=== PATIENT | female | born 1955 | race Caucasian/White ===

== ENCOUNTER 2020-11-08 14:23 | Inpatient (IN) | payer MEDICARE, BC ==
[2020-11-08] MEDS ORDERED: Ondansetron 4 MG/2 ML SDV IVPUSH ONE (14:54)
[2020-11-08] MEDS ORDERED: Sodium Chloride 0.9% 1,000 ML IV ONE ×2 (14:54→18:08)
[2020-11-08] MEDS ORDERED: Famotidine 20 MG/2 ML SDV IVPUSH ONE (14:59)
[2020-11-08] MEDS ORDERED: Pantoprazole 40 MG Vial IVPUSH ONE (14:59)
[2020-11-08 15:05] LABS: CHLORIDE,CL 104 mmol/L (98-107); SODIUM,NA 137 mmol/L (136-145)
--- NOTE | 2020-11-08 15:46 | EDM.PDOC ---
ED HPI GENERAL MEDICAL PROBLEM - General Chief Complaint: Abdominal Pain Stated Complaint: abdominal pain Time Seen by Provider: 11/08/20 14:58 Source of Information: Reports: Patient History Limitations: Reports: No Limitations - History of Present Illness INITIAL COMMENTS - FREE TEXT/NARRATIVE: Patient comes to ER complaining of recent severe nausea/emesis/diarrhea that started around 3am last night while at work. Lots of cramping. Did have a salad earlier in the evening from [employer]. Multiple episodes that lasted for 3- 4 hours. Now feels dry. Still has diffuse abdominal discomfort/feels bloated. Also noted episodes of bright red blood from her rectum periodically since she went home from work this morning. Has history of hemorrhoids. No fevers. Feels chilled in ER. No other acute changes reported on ROS. HEENT/Resp//Neuro/CV unremarkable. No blood in emesis. Still has nausea. Patient on Voltaren for psoas injury. Says it has been upsetting her stomach when she takes it. - Related Data Allergies Allergy/AdvReac Type Severity Reaction Status Date / Time ampicillin Allergy Rash Verified 04/14/13 14:26 iodine Allergy Anaphylactic Verified 05/06/20 10:54 Shock nitrofurantoin Allergy Rash Verified 04/14/13 14:26 [From Macrobid] nitrofurantoin Allergy Rash Verified 04/14/13 14:26 macrocrystalline [From Macrobid] Past Medical History - Past Health History Medical/Surgical History: Denies Medical/Surgical History Cardiovascular History: Reports: Heart Valve Replacement, Hypertension Social & Family History - Tobacco Use Tobacco Use Status *Q: Current Every Day Tobacco User Years of Tobacco use: 43 Packs/Tins Daily: 1 - Caffeine Use Caffeine Use: Reports: Coffee, Soda - Recreational Drug Use Recreational Drug Use: No ED ROS GENERAL - Review of Systems Review Of Systems: Comprehensive ROS is negative, except as noted in HPI. ED EXAM, GENERAL - Physical Exam Exam: See Below Exam Limited By: No Limitations General Appearance: Alert, WD/WN, Mild Distress Eye Exam: Bilateral Eye: EOMI, PERRL Ears: Hearing Grossly Normal Nose: No: Nasal Deformity, Nasal Swelling, Nasal Drainage Throat/Mouth: Normal Lips, Normal Voice, No Airway Compromise Head: Atraumatic, Normocephalic Neck: Supple, Non-Tender, Full Range of Motion Respiratory/Chest: No Respiratory Distress, Lungs Clear, Normal Breath Sounds, No Accessory Muscle Use Cardiovascular: No Edema, No JVD, No Murmur, Tachycardia GI/Abdominal: Soft, Tender (mild/diffuse), Abnormal Bowel Sounds (diminished throughout). No: Guarding, Rigid, Rebound (Female) Exam: Deferred Rectal (Female) Exam: Normal Rectal Tone, Other (No obvious acute external hemorrhoids. Small amount obvious blood noted on glove. No active bleeding however. No obvious internal masses on exam. Old Hemorrhoid tags noted around rectum. No obvious tear in mucosa). No: Mass, Rectal Fissure Extremities: Normal Inspection, Normal Range of Motion, Non-Tender, Slow C apillary Refill Neurological: Alert, Oriented, Normal Cognition, No Motor/Sensory Deficits Psychiatric: Normal Affect, Normal Mood Skin Exam: Warm, Dry, Intact, Normal Color Course - Vital Signs Last Recorded V/S: Last Vital Signs Temp 36.7 C 11/08/20 14:30 Pulse 103 H 11/08/20 14:30 Resp 16 11/08/20 14:30 BP 185/79 H 11/08/20 14:30 Pulse Ox 96 11/08/20 14:30 - Orders/Labs/Meds Orders: Active Orders 24 hr Category Date Time Status Abdomen Series w Chest 1V [CR] Stat Exams 11/08/20 15:15 Ordered OCCULT BLOOD DIAGNOSTIC [OP] Stat Lab 11/08/20 14:59 Ordered URINALYSIS W/MICROSCOPIC [UA W/MICROSCOPIC] [URIN] Stat Lab 11/08/20 14:29 Ordered Sodium Chloride 0.9% [Normal Saline] 1,000 ml Med 11/08/20 14:54 Active IV .BOLUS Medication Orders Sodium Chloride (Normal Saline) 1,000 mls @ 999 mls/hr IV .BOLUS ONE Stop: 11/08/20 15:54 Labs: Laboratory Tests 11/08/20 11/08/20 11/08/20 Range/Units 14:38 14:38 14:38 WBC 27.4 H (4.0-10.2) K/uL RBC 5.47 H (3.77-5.09) M/uL Hgb 16.1 H D (11.7-15.5) g/dL Hct 47.2 H (34.0-46.0) % MCV 86.3 D (84.0-98.0) fL MCH 29.4 (28.2-33.3) pg MCHC 34.1 (31.7-36.0) g/dL RDW 14.7 H (11.2-14.1) % Plt Count 322 (150-350) K/uL Neut % (Auto) 92.8 H (45.0-80.0) % Lymph % (Auto) 3.3 L (10.0-50.0) % [place] % (Auto) 3.8 (2.0-14.0) % Eos % (Auto) 0.0 (0.0-5.0) % Baso % (Auto) 0.1 (0.0-2.0) % Neut # (Auto) 25.43 H (1.40-7.00) K/uL Lymph # (Auto) 0.90 (0.50-3.50) K/uL [place] # (Auto) 1.04 H (0.00-1.00) K/uL Eos # (Auto) 0.01 (0.00-0.50) K/uL Baso # (Auto) 0.03 (0.00-0.20) K/uL Sodium 137 (136-145) mmol/L Potassium 4.5 (3.5-5.1) mmol/L Chloride 104 (98-107) mmol/L Carbon Dioxide 19.9 L (21.0-32.0) mmol/L BUN 38 H (7-18) mg/dL Creatinine 1.32 H (0.51-1.17) mg/dL Est Cr Clr Drug Dosing TNP Estimated GFR (MDRD) 40 mL/min Glucose 180 H (70-99) mg/dL Lactic Acid 2.7 H (0.4-2.0) mmol/L Calcium 8.7 (8.5-10.1) mg/dL Total Bilirubin 0.4 (0.2-1.0) mg/dL AST 21 (15-37) U/L ALT 36 (12-78) U/L Alkaline Phosphatase 684 H (46-116) IU/L Total Protein 8.3 H (6.4-8.2) g/dL Albumin 3.6 (3.4-5.0) g/dL Meds: Medications Generic Name Dose Route Start Last Admin Trade Name Freq PRN Reason Stop Dose Admin Sodium Chloride 1,000 mls @ 999 mls/hr 11/08/20 14:54 Normal Saline IV 11/08/20 15:54 .BOLUS ONE Discontinued Medications Generic Name Dose Route Start Last Admin Trade Name Freq PRN Reason Stop Dose Admin Famotidine 20 mg 11/08/20 14:59 Famotidine 20 Mg/2 Ml Sdv IVPUSH 11/08/20 15:00 ONETIME ONE Ondansetron HCl 4 mg 11/08/20 14:54 Ondansetron 4 Mg/2 Ml Sdv IVPUSH 11/08/20 14:55 ONETIME ONE Pantoprazole Sodium 40 mg 11/08/20 14:59 Pantoprazole 40 Mg Vial IVPUSH 11/08/20 15:00 ONETIME ONE - Re-Assessments/Exams Free Text/Narrative Re-Assessment/Exam: 11/08/20 15:50 Xray of abdomen shows no air/fluid levels or signs of obstruction. No focal infiltrates on chest xray. Labs showed a variety of elevations, including WBC of 27K, Hgb, Bun/Cr, alk phos, and lactic acid. Suspect food poisoning vs viral gastroenteritis. Given the small amount of intermittent bright red blood suspect that may be related to an internal hemorrhoid that was triggered by the severe GI illness. Plan at this time is to admit observation and continue IV fluids/continue to monitor for changes. IV NS and Zofran given in ER, followed by Protonix and Pepcid. Departure - Departure Time of Disposition: 15:53 Disposition: Refer to Observation Condition: Good Clinical Impression: Dehydration, Abdominal pain, vomiting, and diarrhea, BRBPR (bright red blood per rectum) - Discharge Information *PRESCRIPTION DRUG MONITORING PROGRAM REVIEWED*: Not Applicable *COPY OF PRESCRIPTION DRUG MONITORING REPORT IN PATIENT JEANNETTE: Not Applicable Referrals: Ameena Cherry PA [Primary Care Provider] - Sepsis Event Note (ED) - Evaluation Sepsis Screening Result: No Definite Risk - Focused Exam Vital Signs: Vital Signs Temp Pulse Resp BP Pulse Ox 11/08/20 14:30 36.7 C 103 H 16 185/79 H 96 - Problem List & Annotations (1) Dehydration SNOMED Code(s): 24430450 Code(s): E86.0 - DEHYDRATION Status: Acute Priority: High Current Visit: Yes Onset Date: 11/08/20 Annotation/Comment:: IV fluids initiated (2) Abdominal pain, vomiting, and diarrhea SNOMED Code(s): 92793285 Code(s): R10.9 - UNSPECIFIED ABDOMINAL PAIN; R11.10 - VOMITING, UNSPECIFIED; R19.7 - DIARRHEA, UNSPECIFIED Status: Acute Priority: High Current Visit: Yes Onset Date: 11/08/20 Annotation/Comment:: Suspect most likely secondary to food poisoning of viral etiology given history. Elevated WBC/lactic acid. Supportive fluids/Zofran/observe for changes. (3) BRBPR (bright red blood per rectum) SNOMED Code(s): 50665652 Code(s): K62.5 - HEMORRHAGE OF ANUS AND RECTUM Status: Acute Priority: Medium Current Visit: Yes Annotation/Comment:: Given history and exam, intermittent amounts of bright red blood/small clots could be secondary to internal hemorrhoid. Observe. (4) HTN (hypertension) SNOMED Code(s): 66932361 Code(s): I10 - ESSENTIAL (PRIMARY) HYPERTENSION Status: Chronic Priority: Medium Current Visit: Yes Annotation/Comment:: Noted to be elevated in ER. Observe trends. Qualifiers: Hypertension type: essential hypertension Qualified Code(s): I10 - Essential (primary) hypertension - Problem List Review Problem List Initiated/Reviewed/Updated: Yes - My Orders Last 24 Hours: My Active Orders 11/08/20 14:29 URINALYSIS W/MICROSCOPIC [UA W/MICROSCOPIC] [URIN] Stat 11/08/20 14:54 Sodium Chloride 0.9% [Normal Saline] 1,000 ml IV .BOLUS 11/08/20 14:59 OCCULT BLOOD DIAGNOSTIC [OP] Stat 11/08/20 15:15 Abdomen Series w Chest 1V [CR] Stat - Assessment/Plan Admission H&P: Please use this note as an admission H&P Last 24 Hours: My Active Orders 11/08/20 14:29 URINALYSIS W/MICROSCOPIC [UA W/MICROSCOPIC] [URIN] Stat 11/08/20 14:54 Sodium Chloride 0.9% [Normal Saline] 1,000 ml IV .BOLUS 11/08/20 14:59 OCCULT BLOOD DIAGNOSTIC [OP] Stat 11/08/20 15:15 Abdomen Series w Chest 1V [CR] Stat Assessment:: as above. Stable and suitable for general supervision. Plan: as above. Anticipate patient could likely be discharged home tomorrow if she responds well to IV rehydration and time. May need further follow up for BRBPR if bleeding is noted to continue.
[2020-11-08] MEDS ORDERED: Metoprolol Tartrate 25 MG Tab PO ONE (16:03)
[2020-11-08] MEDS ORDERED: Lisinopril 5 MG Tab PO ONE (16:03)
[2020-11-08] MEDS ORDERED: Ondansetron 4 MG/2 ML SDV IVPUSH PRN (16:23)
[2020-11-08] MEDS: Sodium Chloride 0.9% 1,000 ML IV SCH ×2 (16:45→20:08)
[2020-11-09] MEDS ORDERED: Pantoprazole 40 MG Vial IVPUSH ONE (08:00)
[2020-11-09] MEDS ORDERED: Lisinopril 5 MG Tab PO SCH (08:00)
[2020-11-09] MEDS: Metoprolol Tartrate 25 MG Tab PO SCH (08:04)
[2020-11-09] MEDS: Acetaminophen 325 MG Tab PO PRN ×4 (08:05→22:50)
[2020-11-09] MEDS: Sodium Chloride 0.9% 1,000 ML IV SCH ×2 (08:06→19:15)
[2020-11-09 10:19] LABS: CHLORIDE,CL 110 mmol/L (98-107); SODIUM,NA 141 mmol/L (136-145)
--- NOTE | 2020-11-09 10:48 | PCM.PN ---
- General Info Date of Service: 11/09/20 Subjective Update: Pt. states that she is feeling better this AM. She continues to have some diffuse abdominal cramping. Complains of mild nausea, but vomiting is controlled at this point. Pt. does have small amount of bright red blood with stools. Pt. has a history of hemorrhoids. She states that she had a negative FOBT test last year, but states that she has not had a colonoscopy in about 10 years. She states that she does not have rectal bleeding normally. She denies any history of black/tarry stools. Labs improved overnight. Her lactic acid is now within normal limits. She denies any chest pain, shortness of breath, or lightheadedness. No abdominal discomfort. Denies any fever or chills. Functional Status: Reports: Pain Controlled - Review of Systems General: Reports: No Symptoms HEENT: Reports: No Symptoms Pulmonary: Reports: No Symptoms Cardiovascular: Reports: No Symptoms Gastrointestinal: Reports: Nausea Genitourinary: Reports: No Symptoms Musculoskeletal: Reports: No Symptoms Skin: Reports: No Symptoms Neurological: Reports: No Symptoms Psychiatric: Reports: No Symptoms - Patient Data Vitals - Most Recent: Last Vital Signs Temp 37.1 C 11/09/20 07:59 Pulse 91 11/09/20 08:04 Resp 14 11/09/20 07:59 BP 178/68 H 11/09/20 08:04 Pulse Ox 95 11/09/20 07:59 Weight - Most Recent: 67.721 kg I&O - Last 24 Hours: Intake & Output 11/08/20 11/09/20 11/09/20 22:59 06:59 14:59 Intake Total 1000 1000 Output Total 150 800 Balance 850 200 Lab Results Last 24 Hours: Laboratory Results - last 24 hr 11/08/20 11/08/20 11/08/20 Range/Units 14:38 14:38 14:38 WBC 27.4 H (4.0-10.2) K/uL RBC 5.47 H (3.77-5.09) M/uL Hgb 16.1 H D (11.7-15.5) g/dL Hct 47.2 H (34.0-46.0) % MCV 86.3 D (84.0-98.0) fL MCH 29.4 (28.2-33.3) pg MCHC 34.1 (31.7-36.0) g/dL RDW 14.7 H (11.2-14.1) % Plt Count 322 (150-350) K/uL Neut % (Auto) 92.8 H (45.0-80.0) % Lymph % (Auto) 3.3 L (10.0-50.0) % [place] % (Auto) 3.8 (2.0-14.0) % Eos % (Auto) 0.0 (0.0-5.0) % Baso % (Auto) 0.1 (0.0-2.0) % Neut # (Auto) 25.43 H (1.40-7.00) K/uL Lymph # (Auto) 0.90 (0.50-3.50) K/uL [place] # (Auto) 1.04 H (0.00-1.00) K/uL Eos # (Auto) 0.01 (0.00-0.50) K/uL Baso # (Auto) 0.03 (0.00-0.20) K/uL Sodium 137 (136-145) mmol/L Potassium 4.5 (3.5-5.1) mmol/L Chloride 104 (98-107) mmol/L Carbon Dioxide 19.9 L (21.0-32.0) mmol/L BUN 38 H (7-18) mg/dL Creatinine 1.32 H (0.51-1.17) mg/dL Est Cr Clr Drug Dosing TNP Estimated GFR (MDRD) 40 mL/min Glucose 180 H (70-99) mg/dL Lactic Acid 2.7 H (0.4-2.0) mmol/L Calcium 8.7 (8.5-10.1) mg/dL Total Bilirubin 0.4 (0.2-1.0) mg/dL AST 21 (15-37) U/L ALT 36 (12-78) U/L Alkaline Phosphatase 684 H (46-116) IU/L Total Protein 8.3 H (6.4-8.2) g/dL Albumin 3.6 (3.4-5.0) g/dL Specimen Type Urine Color Urine Appearance Urine pH (5.0-9.0) Ur Specific [place] (1.005-1.030) Urine Protein (NEGATIVE) mg/dL Urine Glucose (UA) (NEGATIVE) mg/dL Urine Ketones (NEGATIVE) mg/dL Urine Occult Blood (NEGATIVE) Urine Nitrite (NEGATIVE) Urine Bilirubin (NEGATIVE) Urine Urobilinogen (0.2-1.0) E.U./dL Ur Leukocyte Esterase (NEGATIVE) U Hyaline Cast (Auto) Urine RBC /HPF Urine WBC /HPF Ur Epithelial Cells /LPF Urine Bacteria (NONE TO FEW) /HPF Granular Casts (Auto) 11/08/20 11/09/20 11/09/20 Range/Units 19:00 07:19 07:19 WBC (4.0-10.2) K/uL RBC (3.77-5.09) M/uL Hgb (11.7-15.5) g/dL Hct (34.0-46.0) % MCV (84.0-98.0) fL MCH (28.2-33.3) pg MCHC (31.7-36.0) g/dL RDW (11.2-14.1) % Plt Count (150-350) K/uL Neut % (Auto) (45.0-80.0) % Lymph % (Auto) (10.0-50.0) % [place] % (Auto) (2.0-14.0) % Eos % (Auto) (0.0-5.0) % Baso % (Auto) (0.0-2.0) % Neut # (Auto) (1.40-7.00) K/uL Lymph # (Auto) (0.50-3.50) K/uL [place] # (Auto) (0.00-1.00) K/uL Eos # (Auto) (0.00-0.50) K/uL Baso # (Auto) (0.00-0.20) K/uL Sodium 141 (136-145) mmol/L Potassium 4.1 (3.5-5.1) mmol/L Chloride 110 H (98-107) mmol/L Carbon Dioxide 20.0 L (21.0-32.0) mmol/L BUN 19 H (7-18) mg/dL Creatinine 0.83 (0.51-1.17) mg/dL Est Cr Clr Drug Dosing 53.44 Estimated GFR (MDRD) > 60 mL/min Glucose 120 H (70-99) mg/dL Lactic Acid 0.7 (0.4-2.0) mmol/L Calcium 7.8 L (8.5-10.1) mg/dL Total Bilirubin 0.4 (0.2-1.0) mg/dL AST 14 L (15-37) U/L ALT 26 (12-78) U/L Alkaline Phosphatase 328 H (46-116) IU/L Total Protein 6.7 (6.4-8.2) g/dL Albumin 2.7 L (3.4-5.0) g/dL Specimen Type Urinvoid Urine Color Dark yellow Urine Appearance Clear Urine pH 5.0 (5.0-9.0) Ur Specific [place] 1.020 (1.005-1.030) Urine Protein Trace H (NEGATIVE) mg/dL Urine Glucose (UA) Negative (NEGATIVE) mg/dL Urine Ketones Negative (NEGATIVE) mg/dL Urine Occult Blood Small H (NEGATIVE) Urine Nitrite Negative (NEGATIVE) Urine Bilirubin Negative (NEGATIVE) Urine Urobilinogen 0.2 (0.2-1.0) E.U./dL Ur Leukocyte Esterase Negative (NEGATIVE) U Hyaline Cast (Auto) Few Urine RBC 0-5 /HPF Urine WBC 0-5 /HPF Ur Epithelial Cells Moderate H /LPF Urine Bacteria Moderate H (NONE TO FEW) /HPF Granular Casts (Auto) Few 06/29/21 Range/Units 07:19 WBC 20.1 H (4.0-10.2) K/uL RBC 4.53 (3.77-5.09) M/uL Hgb 13.3 D (11.7-15.5) g/dL Hct 39.3 (34.0-46.0) % MCV 86.8 (84.0-98.0) fL MCH 29.4 (28.2-33.3) pg MCHC 33.8 (31.7-36.0) g/dL RDW 14.7 H (11.2-14.1) % Plt Count 269 (150-350) K/uL Neut % (Auto) 83.2 H (45.0-80.0) % Lymph % (Auto) 9.8 L (10.0-50.0) % [place] % (Auto) 6.7 (2.0-14.0) % Eos % (Auto) 0.2 (0.0-5.0) % Baso % (Auto) 0.1 (0.0-2.0) % Neut # (Auto) 16.74 H (1.40-7.00) K/uL Lymph # (Auto) 1.98 (0.50-3.50) K/uL [place] # (Auto) 1.34 H (0.00-1.00) K/uL Eos # (Auto) 0.04 (0.00-0.50) K/uL Baso # (Auto) 0.03 (0.00-0.20) K/uL Sodium (136-145) mmol/L Potassium (3.5-5.1) mmol/L Chloride (98-107) mmol/L Carbon Dioxide (21.0-32.0) mmol/L BUN (7-18) mg/dL Creatinine (0.51-1.17) mg/dL Est Cr Clr Drug Dosing Estimated GFR (MDRD) mL/min Glucose (70-99) mg/dL Lactic Acid (0.4-2.0) mmol/L Calcium (8.5-10.1) mg/dL Total Bilirubin (0.2-1.0) mg/dL AST (15-37) U/L ALT (12-78) U/L Alkaline Phosphatase (46-116) IU/L Total Protein (6.4-8.2) g/dL Albumin (3.4-5.0) g/dL Specimen Type Urine Color Urine Appearance Urine pH (5.0-9.0) Ur Specific [place] (1.005-1.030) Urine Protein (NEGATIVE) mg/dL Urine Glucose (UA) (NEGATIVE) mg/dL Urine Ketones (NEGATIVE) mg/dL Urine Occult Blood (NEGATIVE) Urine Nitrite (NEGATIVE) Urine Bilirubin (NEGATIVE) Urine Urobilinogen (0.2-1.0) E.U./dL Ur Leukocyte Esterase (NEGATIVE) U Hyaline Cast (Auto) Urine RBC /HPF Urine WBC /HPF Ur Epithelial Cells /LPF Urine Bacteria (NONE TO FEW) /HPF Granular Casts (Auto) Med Orders - Current: Current Medications Acetaminophen (Acetaminophen 325 Mg Tab) 650 mg PO Q4H PRN PRN Reason: Pain/Fever Last Admin: 11/09/20 08:05 Dose: 650 mg Documented by: Sodium Chloride (Normal Saline) 1,000 mls @ 100 mls/hr IV ASDIRECTED [facility] Last Admin: 11/09/20 08:06 Dose: 100 mls/hr Documented by: Lisinopril (Lisinopril 5 Mg Tab) 5 mg PO DAILY [facility] Last Admin: 11/09/20 08:04 Dose: 5 mg Documented by: Metoprolol Tartrate (Metoprolol Tartrate 25 Mg Tab) 25 mg PO DAILY [facility] Last Admin: 11/09/20 08:04 Dose: 25 mg Documented by: Ondansetron HCl (Ondansetron 4 Mg/2 Ml Sdv) 4 mg IVPUSH Q6H PRN PRN Reason: Nausea/Vomiting Discontinued Medications Famotidine (Famotidine 20 Mg/2 Ml Sdv) 20 mg IVPUSH ONETIME ONE Stop: 11/08/20 15:00 Last Admin: 11/08/20 15:03 Dose: 20 mg Documented by: Sodium Chloride (Normal Saline) 1,000 mls @ 999 mls/hr IV .BOLUS ONE Stop: 11/08/20 15:54 Last Admin: 11/08/20 15:01 Dose: 999 mls/hr Documented by: Sodium Chloride (Normal Saline) 1,000 mls @ 150 mls/hr IV ASDIRECTED [facility] Stop: 11/09/20 23:09 Last Admin: 11/08/20 20:08 Dose: 150 mls/hr Documented by: Sodium Chloride (Normal Saline) 1,000 mls @ 500 mls/hr IV .BOLUS ONE Stop: 11/08/20 20:07 Last Admin: 11/08/20 19:49 Dose: 500 mls/hr Documented by: Lisinopril (Lisinopril 5 Mg Tab) 5 mg PO ONETIME ONE Stop: 11/08/20 16:04 Last Admin: 11/08/20 16:45 Dose: 5 mg Documented by: Metoprolol Tartrate (Metoprolol Tartrate 25 Mg Tab) 25 mg PO ONETIME ONE Stop: 11/08/20 16:04 Last Admin: 11/08/20 16:46 Dose: 25 mg Documented by: Ondansetron HCl (Ondansetron 4 Mg/2 Ml Sdv) 4 mg IVPUSH ONETIME ONE Stop: 11/08/20 14:55 Last Admin: 11/08/20 15:04 Dose: 4 mg Documented by: Pantoprazole Sodium (Pantoprazole 40 Mg Vial) 40 mg IVPUSH ONETIME ONE Stop: 11/08/20 15:00 Last Admin: 11/08/20 15:04 Dose: 40 mg Documented by: Pantoprazole Sodium (Pantoprazole 40 Mg Vial) 40 mg IVPUSH ONETIME ONE Stop: 11/09/20 08:01 Last Admin: 11/09/20 08:05 Dose: 40 mg Documented by: - Exam General: Alert, Oriented Neck: Supple Lungs: Clear to Auscultation, Normal Respiratory Effort Cardiovascular: Regular Rate, Regular Rhythm GI/Abdominal Exam: Normal Bowel Sounds, Soft, Non-Tender, No Distention, No Mass Extremities: Normal Inspection, Normal Range of Motion, Non-Tender, Normal Capillary Refill Skin: Warm, Dry, Intact Neurological: No New Focal Deficit Psy/Mental Status: Alert, Normal Affect, Normal Mood - Patient Data Lab Results Last 24 hrs: Laboratory Results - last 24 hr 11/08/20 11/08/20 11/08/20 Range/Units 14:38 14:38 14:38 WBC 27.4 H (4.0-10.2) K/uL RBC 5.47 H (3.77-5.09) M/uL Hgb 16.1 H D (11.7-15.5) g/dL Hct 47.2 H (34.0-46.0) % MCV 86.3 D (84.0-98.0) fL MCH 29.4 (28.2-33.3) pg MCHC 34.1 (31.7-36.0) g/dL RDW 14.7 H (11.2-14.1) % Plt Count 322 (150-350) K/uL Neut % (Auto) 92.8 H (45.0-80.0) % Lymph % (Auto) 3.3 L (10.0-50.0) % [place] % (Auto) 3.8 (2.0-14.0) % Eos % (Auto) 0.0 (0.0-5.0) % Baso % (Auto) 0.1 (0.0-2.0) % Neut # (Auto) 25.43 H (1.40-7.00) K/uL Lymph # (Auto) 0.90 (0.50-3.50) K/uL [place] # (Auto) 1.04 H (0.00-1.00) K/uL Eos # (Auto) 0.01 (0.00-0.50) K/uL Baso # (Auto) 0.03 (0.00-0.20) K/uL Sodium 137 (136-145) mmol/L Potassium 4.5 (3.5-5.1) mmol/L Chloride 104 (98-107) mmol/L Carbon Dioxide 19.9 L (21.0-32.0) mmol/L BUN 38 H (7-18) mg/dL Creatinine 1.32 H (0.51-1.17) mg/dL Est Cr Clr Drug Dosing TNP Estimated GFR (MDRD) 40 mL/min Glucose 180 H (70-99) mg/dL Lactic Acid 2.7 H (0.4-2.0) mmol/L Calcium 8.7 (8.5-10.1) mg/dL Total Bilirubin 0.4 (0.2-1.0) mg/dL AST 21 (15-37) U/L ALT 36 (12-78) U/L Alkaline Phosphatase 684 H (46-116) IU/L Total Protein 8.3 H (6.4-8.2) g/dL Albumin 3.6 (3.4-5.0) g/dL Specimen Type Urine Color Urine Appearance Urine pH (5.0-9.0) Ur Specific [place] (1.005-1.030) Urine Protein (NEGATIVE) mg/dL Urine Glucose (UA) (NEGATIVE) mg/dL Urine Ketones (NEGATIVE) mg/dL Urine Occult Blood (NEGATIVE) Urine Nitrite (NEGATIVE) Urine Bilirubin (NEGATIVE) Urine Urobilinogen (0.2-1.0) E.U./dL Ur Leukocyte Esterase (NEGATIVE) U Hyaline Cast (Auto) Urine RBC /HPF Urine WBC /HPF Ur Epithelial Cells /LPF Urine Bacteria (NONE TO FEW) /HPF Granular Casts (Auto) 11/08/20 11/09/20 11/09/20 Range/Units 19:00 07:19 07:19 WBC (4.0-10.2) K/uL RBC (3.77-5.09) M/uL Hgb (11.7-15.5) g/dL Hct (34.0-46.0) % MCV (84.0-98.0) fL MCH (28.2-33.3) pg MCHC (31.7-36.0) g/dL RDW (11.2-14.1) % Plt Count (150-350) K/uL Neut % (Auto) (45.0-80.0) % Lymph % (Auto) (10.0-50.0) % [place] % (Auto) (2.0-14.0) % Eos % (Auto) (0.0-5.0) % Baso % (Auto) (0.0-2.0) % Neut # (Auto) (1.40-7.00) K/uL Lymph # (Auto) (0.50-3.50) K/uL [place] # (Auto) (0.00-1.00) K/uL Eos # (Auto) (0.00-0.50) K/uL Baso # (Auto) (0.00-0.20) K/uL Sodium 141 (136-145) mmol/L Potassium 4.1 (3.5-5.1) mmol/L Chloride 110 H (98-107) mmol/L Carbon Dioxide 20.0 L (21.0-32.0) mmol/L BUN 19 H (7-18) mg/dL Creatinine 0.83 (0.51-1.17) mg/dL Est Cr Clr Drug Dosing 53.44 Estimated GFR (MDRD) > 60 mL/min Glucose 120 H (70-99) mg/dL Lactic Acid 0.7 (0.4-2.0) mmol/L Calcium 7.8 L (8.5-10.1) mg/dL Total Bilirubin 0.4 (0.2-1.0) mg/dL AST 14 L (15-37) U/L ALT 26 (12-78) U/L Alkaline Phosphatase 328 H (46-116) IU/L Total Protein 6.7 (6.4-8.2) g/dL Albumin 2.7 L (3.4-5.0) g/dL Specimen Type Urinvoid Urine Color Dark yellow Urine Appearance Clear Urine pH 5.0 (5.0-9.0) Ur Specific [place] 1.020 (1.005-1.030) Urine Protein Trace H (NEGATIVE) mg/dL Urine Glucose (UA) Negative (NEGATIVE) mg/dL Urine Ketones Negative (NEGATIVE) mg/dL Urine Occult Blood Small H (NEGATIVE) Urine Nitrite Negative (NEGATIVE) Urine Bilirubin Negative (NEGATIVE) Urine Urobilinogen 0.2 (0.2-1.0) E.U./dL Ur Leukocyte Esterase Negative (NEGATIVE) U Hyaline Cast (Auto) Few Urine RBC 0-5 /HPF Urine WBC 0-5 /HPF Ur Epithelial Cells Moderate H /LPF Urine Bacteria Moderate H (NONE TO FEW) /HPF Granular Casts (Auto) Few // Range/Units 07:19 WBC 20.1 H (4.0-10.2) K/uL RBC 4.53 (3.77-5.09) M/uL Hgb 13.3 D (11.7-15.5) g/dL Hct 39.3 (34.0-46.0) % MCV 86.8 (84.0-98.0) fL MCH 29.4 (28.2-33.3) pg MCHC 33.8 (31.7-36.0) g/dL RDW 14.7 H (11.2-14.1) % Plt Count 269 (150-350) K/uL Neut % (Auto) 83.2 H (45.0-80.0) % Lymph % (Auto) 9.8 L (10.0-50.0) % [place] % (Auto) 6.7 (2.0-14.0) % Eos % (Auto) 0.2 (0.0-5.0) % Baso % (Auto) 0.1 (0.0-2.0) % Neut # (Auto) 16.74 H (1.40-7.00) K/uL Lymph # (Auto) 1.98 (0.50-3.50) K/uL Starr # (Auto) 1.34 H (0.00-1.00) K/uL Eos # (Auto) 0.04 (0.00-0.50) K/uL Baso # (Auto) 0.03 (0.00-0.20) K/uL Sodium (136-145) mmol/L Potassium (3.5-5.1) mmol/L Chloride (98-107) mmol/L Carbon Dioxide (21.0-32.0) mmol/L BUN (7-18) mg/dL Creatinine (0.51-1.17) mg/dL Est Cr Clr Drug Dosing Estimated GFR (MDRD) mL/min Glucose (70-99) mg/dL Lactic Acid (0.4-2.0) mmol/L Calcium (8.5-10.1) mg/dL Total Bilirubin (0.2-1.0) mg/dL AST (15-37) U/L ALT (12-78) U/L Alkaline Phosphatase (46-116) IU/L Total Protein (6.4-8.2) g/dL Albumin (3.4-5.0) g/dL Specimen Type Urine Color Urine Appearance Urine pH (5.0-9.0) Ur Specific [place] (1.005-1.030) Urine Protein (NEGATIVE) mg/dL Urine Glucose (UA) (NEGATIVE) mg/dL Urine Ketones (NEGATIVE) mg/dL Urine Occult Blood (NEGATIVE) Urine Nitrite (NEGATIVE) Urine Bilirubin (NEGATIVE) Urine Urobilinogen (0.2-1.0) E.U./dL Ur Leukocyte Esterase (NEGATIVE) U Hyaline Cast (Auto) Urine RBC /HPF Urine WBC /HPF Ur Epithelial Cells /LPF Urine Bacteria (NONE TO FEW) /HPF Granular Casts (Auto) Result Diagrams: 11/09/20 07:19 11/09/20 07:19 Sepsis Event Note - Evaluation Sepsis Screening Result: Sepsis Risk - Focused Exam Vital Signs: Vital Signs Temp Pulse Pulse Resp BP BP BP 11/09/20 08:04 91 178/68 H 11/09/20 07:59 37.1 C 91 14 178/68 H 11/09/20 04:00 36.7 C 85 16 160/94 H 11/09/20 00:00 36.6 C 84 16 142/98 H Pulse Ox 11/09/20 08:04 11/09/20 07:59 95 11/09/20 04:00 94 L 11/09/20 00:00 94 L - Problem List Review Problem List Initiated/Reviewed/Updated: Yes - Plan Plan:: Continue admission. Will advance diet to full liquid this AM. If she tolerates this, BRAT diet tonight. Repeat CBC, CMP and lactic acid in the AM. Continue IV fluids. Anticipate discharge tomorrow if tolerating food/able to hold down fluids.
[2020-11-09] MEDS ORDERED: Lisinopril 5 MG Tab PO ONE (13:23)
[2020-11-09] MEDS ORDERED: Metoprolol Tartrate 50 MG Tab PO ONE (17:22)
[2020-11-10] MEDS: Acetaminophen 325 MG Tab PO PRN (04:42)
[2020-11-10] MEDS: Sodium Chloride 0.9% 1,000 ML IV SCH ×2 (06:01→18:19)
[2020-11-10] MEDS: Metoprolol Tartrate 25 MG Tab PO SCH (07:25)
[2020-11-10 07:53] LABS: CHLORIDE,CL 109 mmol/L (98-107); SODIUM,NA 143 mmol/L (136-145)
[2020-11-10] MEDS ORDERED: Lisinopril 10 MG Tab PO SCH (08:00)
[2020-11-10] MEDS ORDERED: Morphine 4 MG/ML Syringe IVPUSH ONE (10:35)
--- NOTE | 2020-11-10 10:39 | PCM.PN ---
- General Info Date of Service: 11/10/20 Admission Dx/Problem (Free Text): ABD pain nausea vomiting diarrhea, BRBPR with mucoid discharge as well. Dehydration OUMOU Hypertension. Subjective Update: Patient states she is feeling better this morning. She has no weakness dizziness lightheadedness. No unsteadiness. She has not been vomiting. She is not nauseated. She continues to have any time that she eats something and almost immediate bowel movement that is bright red blood she reports small amount with mucus as well. Even eating 1 small cracker she has to get up and go to the bathroom immediately. She has generalized diffuse abdominal pain. She denies any fever or chills. She relates that she overall feels better but her stools have not improved. She has not been on any antibiotics recently. She has not had a colonoscopy for 10 years. She has not traveled anywhere recently. There has been no one else ill around her. - Review of Systems Pulmonary: Reports: No Symptoms Cardiovascular: Reports: No Symptoms Gastrointestinal: Reports: Abdominal Pain, Diarrhea, Hematochezia Genitourinary: Reports: No Symptoms Musculoskeletal: Reports: No Symptoms Skin: Reports: No Symptoms Neurological: Reports: No Symptoms Psychiatric: Reports: No Symptoms - Patient Data Vitals - Most Recent: Last Vital Signs Temp 97.7 F 11/10/20 07:57 Pulse 80 11/10/20 07:57 Resp 14 11/10/20 07:57 BP 182/102 H 11/10/20 07:57 Pulse Ox 94 L 11/10/20 07:57 Weight - Most Recent: 149 lb 4.8 oz I&O - Last 24 Hours: Intake & Output 11/09/20 11/10/20 11/10/20 22:59 06:59 14:59 Intake Total 900 1327 Output Total 1300 Balance -400 1327 Imaging Impressions - Last 24 Hours: CT abdomen pelvis per radiology completed today. 1. Long segment of acute colitis involving the descending and sigmoid colon beginning at the splenic flexure. Findings can be seen in infectious, inflammatory, or ischemic colitis. 2. Small volume of free fluid within the abdomen or pelvis. 3. 7 x 2 mm nodule in the right middle lobe. This could be further evaluated with a dedicated chest CT. There is mild groundglass opacities in the lung bases representing atelectasis versus infiltrate. 4. Mild fullness of the pancreatic tail with focal calcification. Pancreatic lesion or mass is not excluded. This could be further evaluated with MRI on a nonemergent basis. Lab Results Last 24 Hours: Laboratory Results - last 24 hr 11/10/20 11/10/20 11/10/20 Range/Units 07:21 07:21 07:26 WBC 14.9 H (4.0-10.2) K/uL RBC 4.13 (3.77-5.09) M/uL Hgb 12.2 (11.7-15.5) g/dL Hct 36.5 (34.0-46.0) % MCV 88.4 (84.0-98.0) fL MCH 29.5 (28.2-33.3) pg MCHC 33.4 (31.7-36.0) g/dL RDW 14.9 H (11.2-14.1) % Plt Count 234 (150-350) K/uL Neut % (Auto) 76.9 (45.0-80.0) % Lymph % (Auto) 16.3 (10.0-50.0) % [place] % (Auto) 5.1 (2.0-14.0) % Eos % (Auto) 1.4 (0.0-5.0) % Baso % (Auto) 0.3 (0.0-2.0) % Neut # (Auto) 11.49 H (1.40-7.00) K/uL Lymph # (Auto) 2.43 (0.50-3.50) K/uL [place] # (Auto) 0.76 (0.00-1.00) K/uL Eos # (Auto) 0.21 (0.00-0.50) K/uL Baso # (Auto) 0.04 (0.00-0.20) K/uL Sodium 143 (136-145) mmol/L Potassium 3.8 (3.5-5.1) mmol/L Chloride 109 H (98-107) mmol/L Carbon Dioxide 20.8 L (21.0-32.0) mmol/L BUN 10 (7-18) mg/dL Creatinine 0.68 (0.51-1.17) mg/dL Est Cr Clr Drug Dosing 65.23 mL/min Estimated GFR (MDRD) > 60 mL/min Glucose 92 (70-99) mg/dL Calcium 7.9 L (8.5-10.1) mg/dL Total Bilirubin 0.4 (0.2-1.0) mg/dL AST 13 L (15-37) U/L ALT 22 (12-78) U/L Alkaline Phosphatase 203 H (46-116) IU/L C-Reactive Protein 11.9 H (<=0.9) mg/dL Total Protein 6.4 (6.4-8.2) g/dL Albumin 2.6 L (3.4-5.0) g/dL Med Orders - Current: Current Medications Acetaminophen (Acetaminophen 325 Mg Tab) 650 mg PO Q4H PRN PRN Reason: Pain/Fever Last Admin: 11/10/20 04:42 Dose: 650 mg Documented by: Sodium Chloride (Normal Saline) 1,000 mls @ 100 mls/hr IV ASDIRECTED [facility] Last Admin: 11/10/20 06:01 Dose: 100 mls/hr Documented by: Sodium Chloride (Normal Saline) 500 mls @ 999 mls/hr IV .BOLUS [facility] Lisinopril (Lisinopril 10 Mg Tab) 10 mg PO DAILY [facility] Last Admin: 11/10/20 07:25 Dose: 10 mg Documented by: Metoprolol Tartrate (Metoprolol Tartrate 25 Mg Tab) 25 mg PO DAILY [facility] Last Admin: 11/10/20 07:25 Dose: 25 mg Documented by: Morphine Sulfate (Morphine 4 Mg/Ml Syringe) 4 mg IVPUSH ONETIME ONE Stop: 11/10/20 10:36 Ondansetron HCl (Ondansetron 4 Mg/2 Ml Sdv) 4 mg IVPUSH Q6H PRN PRN Reason: Nausea/Vomiting Discontinued Medications Famotidine (Famotidine 20 Mg/2 Ml Sdv) 20 mg IVPUSH ONETIME ONE Stop: 11/08/20 15:00 Last Admin: 11/08/20 15:03 Dose: 20 mg Documented by: Sodium Chloride (Normal Saline) 1,000 mls @ 999 mls/hr IV .BOLUS ONE Stop: 11/08/20 15:54 Last Admin: 11/08/20 15:01 Dose: 999 mls/hr Documented by: Sodium Chloride (Normal Saline) 1,000 mls @ 150 mls/hr IV ASDIRECTED [facility] Stop: 11/09/20 23:09 Last Admin: 11/08/20 20:08 Dose: 150 mls/hr Documented by: Sodium Chloride (Normal Saline) 1,000 mls @ 500 mls/hr IV .BOLUS ONE Stop: 11/08/20 20:07 Last Admin: 11/08/20 19:49 Dose: 500 mls/hr Documented by: Lisinopril (Lisinopril 5 Mg Tab) 5 mg PO ONETIME ONE Stop: 11/08/20 16:04 Last Admin: 11/08/20 16:45 Dose: 5 mg Documented by: Lisinopril (Lisinopril 5 Mg Tab) 5 mg PO DAILY [facility] Last Admin: 11/09/20 08:04 Dose: 5 mg Documented by: Lisinopril (Lisinopril 5 Mg Tab) 5 mg PO ONETIME ONE Stop: 11/09/20 13:24 Last Admin: 11/09/20 14:16 Dose: 5 mg Documented by: Metoprolol Tartrate (Metoprolol Tartrate 25 Mg Tab) 25 mg PO ONETIME ONE Stop: 11/08/20 16:04 Last Admin: 11/08/20 16:46 Dose: 25 mg Documented by: Metoprolol Tartrate (Metoprolol Tartrate 50 Mg Tab) 50 mg PO ONETIME ONE Stop: 11/09/20 17:23 Last Admin: 11/09/20 17:46 Dose: 50 mg Documented by: Ondansetron HCl (Ondansetron 4 Mg/2 Ml Sdv) 4 mg IVPUSH ONETIME ONE Stop: 11/08/20 14:55 Last Admin: 11/08/20 15:04 Dose: 4 mg Documented by: Pantoprazole Sodium (Pantoprazole 40 Mg Vial) 40 mg IVPUSH ONETIME ONE Stop: 11/08/20 15:00 Last Admin: 11/08/20 15:04 Dose: 40 mg Documented by: Pantoprazole Sodium (Pantoprazole 40 Mg Vial) 40 mg IVPUSH ONETIME ONE Stop: 11/09/20 08:01 Last Admin: 11/09/20 08:05 Dose: 40 mg Documented by: - Exam General: Alert, Oriented, No Acute Distress HEENT: Pupils Equal, Pupils Reactive, EOMI Neck: Supple Lungs: Clear to Auscultation, Normal Respiratory Effort Cardiovascular: Regular Rate, Regular Rhythm, No Murmurs GI/Abdominal Exam: Soft, Tender (diffuse generalized tenderness throughout the abd. ), Abnormal Bowel Sounds (diminished bowel sounds. ). No: Distended, Guarding, Rigid, Rebound (Female) Exam: Deferred Back Exam: Normal Inspection Extremities: Normal Inspection, Normal Range of Motion, No Pedal Edema, Normal Capillary Refill Skin: Warm, Dry, Intact Neurological: No New Focal Deficit Psy/Mental Status: Alert, Normal Affect, Normal Mood - Patient Data Lab Results Last 24 hrs: Laboratory Results - last 24 hr 11/10/20 11/10/20 11/10/20 Range/Units 07:21 07:21 07:26 WBC 14.9 H (4.0-10.2) K/uL RBC 4.13 (3.77-5.09) M/uL Hgb 12.2 (11.7-15.5) g/dL Hct 36.5 (34.0-46.0) % MCV 88.4 (84.0-98.0) fL MCH 29.5 (28.2-33.3) pg MCHC 33.4 (31.7-36.0) g/dL RDW 14.9 H (11.2-14.1) % Plt Count 234 (150-350) K/uL Neut % (Auto) 76.9 (45.0-80.0) % Lymph % (Auto) 16.3 (10.0-50.0) % [place] % (Auto) 5.1 (2.0-14.0) % Eos % (Auto) 1.4 (0.0-5.0) % Baso % (Auto) 0.3 (0.0-2.0) % Neut # (Auto) 11.49 H (1.40-7.00) K/uL Lymph # (Auto) 2.43 (0.50-3.50) K/uL [place] # (Auto) 0.76 (0.00-1.00) K/uL Eos # (Auto) 0.21 (0.00-0.50) K/uL Baso # (Auto) 0.04 (0.00-0.20) K/uL Sodium 143 (136-145) mmol/L Potassium 3.8 (3.5-5.1) mmol/L Chloride 109 H (98-107) mmol/L Carbon Dioxide 20.8 L (21.0-32.0) mmol/L BUN 10 (7-18) mg/dL Creatinine 0.68 (0.51-1.17) mg/dL Est Cr Clr Drug Dosing 65.23 mL/min Estimated GFR (MDRD) > 60 mL/min Glucose 92 (70-99) mg/dL Calcium 7.9 L (8.5-10.1) mg/dL Total Bilirubin 0.4 (0.2-1.0) mg/dL AST 13 L (15-37) U/L ALT 22 (12-78) U/L Alkaline Phosphatase 203 H (46-116) IU/L C-Reactive Protein 11.9 H (<=0.9) mg/dL Total Protein 6.4 (6.4-8.2) g/dL Albumin 2.6 L (3.4-5.0) g/dL Result Diagrams: 11/10/20 07:21 11/10/20 07:21 Sepsis Event Note - Evaluation Sepsis Screening Result: No Definite Risk - Focused Exam Vital Signs: Vital Signs Temp Pulse Pulse Resp BP BP Pulse Ox 11/10/20 07:57 97.7 F 80 14 182/102 H 94 L 11/10/20 07:25 80 182/102 H 11/10/20 04:50 97.5 F 76 16 150/92 H 96 - Problem List & Annotations (1) Abdominal pain, vomiting, and diarrhea SNOMED Code(s): 27288288 Code(s): R10.9 - UNSPECIFIED ABDOMINAL PAIN; R11.10 - VOMITING, UNSPECIFIED; R19.7 - DIARRHEA, UNSPECIFIED Status: Acute Priority: High Current Visit: Yes Onset Date: 11/08/20 Annotation/Comment:: Still having pain and regular blood mucoid diarrhea. ? Infectious collitis with E Coli Shiga toxin a concern as well. Stool cultures pending. CT abd pelvis completed today long segment of acute colitis involving the descending and sigmoid colon beginning at the splenic flexure. Findings can be seen in infectious, inflammatory or ischemic colitis. There is no mention of pneumatosis. Small volume of free fluid within the abdomen or pelvis no free air. There is a 7 x 2 nodule in the right middle lobe evaluate with dedicated chest CT in the future. Mild fullness of the pancreatic tail with focal calcification. The pancreatic lesion or mass is not excluded this could be further evaluated with MRI on nonemergent basis. At this time we will hold off on antibiotic therapy for the colitis with my concerns of E. coli and possible Shiga toxin with the severe bloody mucoid diarrhea. C. difficile is possible as well although unlikely follow stool cultures. She is having increasing pain with her bowel movements this could be caused by bowel ischemia although her lactic acid is normal. We will give fluid bolus continue her hydration we will attempt some Bentyl. Caution with opioids in the presence of sugar toxin. (2) BRBPR (bright red blood per rectum) SNOMED Code(s): 58311280 Code(s): K62.5 - HEMORRHAGE OF ANUS AND RECTUM Status: Acute Priority: Medium Current Visit: Yes Annotation/Comment:: With the bloody stools and mucoid discharge stool cultures sent Ova Parasite C Diff and Shiga toxin ordered. No antibiotics at this time as my concern for E Coli with shiga is high. Will attempt to do colonoscopy tomorrow with the surgeon being here. (3) Dehydration SNOMED Code(s): 53960984 Code(s): E86.0 - DEHYDRATION Status: Acute Priority: High Current Visit: Yes Onset Date: 11/08/20 Annotation/Comment:: Will continue the IV hydration as she is not able to drink or eat much at this time. OUMOU has resovled and good urinary output. Creat back to normal. (4) HTN (hypertension) SNOMED Code(s): 15426635 Code(s): I10 - ESSENTIAL (PRIMARY) HYPERTENSION Status: Chronic Priority: Medium Current Visit: Yes Qualifiers: Hypertension type: essential hypertension Qualified Code(s): I10 - Essential (primary) hypertension Annotation/Comment:: Still quite hypertensive. Increase Lisinopril and Metopr olol yesterday. Blood pressures today 200s/100s. Will increase her lisinopril to 20 qd. Continue to observe. Metoprolol tartrate at 50mg qd continue. (5) Nodule of middle lobe of right lung SNOMED Code(s): 023403784 Code(s): R91.1 - SOLITARY PULMONARY NODULE Status: Acute Current Visit: Yes Annotation/Comment:: 7x2 mm nodule in the right middle lobe found on abd CT. Dedicated chest CT once out of hospital at follow up. (6) Pancreatic lesion SNOMED Code(s): 6727835 Code(s): K86.9 - DISEASE OF PANCREAS, UNSPECIFIED Status: Acute Current Visit: Yes Annotation/Comment:: Noted fullness on the pancreatic tail on ct abd pelvis today. A mass or lesion is not excluded. Lipase pending. MRI abd with pancreatic phasing after discharge for further evaluation. (7) Colitis SNOMED Code(s): 93310132 Code(s): K52.9 - NONINFECTIVE GASTROENTERITIS AND COLITIS, UNSPECIFIED Status: Acute Current Visit: Yes Annotation/Comment:: ? if it is infectious collitis. Stool cultures pending to include C Diff shiga toxin ova parasites. See abd pain NVD for management at this time. - Problem List Review Problem List Initiated/Reviewed/Updated: Yes - My Orders Last 24 Hours: My Active Orders 11/10/20 08:58 Abdomen Pelvis wo Cont [CT] Routine OVA & PARASITES BY IMMUNOASSAY [MREF] Stat 11/10/20 10:20 C DIFFICILE TOXIN IMMUNOASSAY [MREF] Stat 11/10/20 10:35 Morphine 4 mg IVPUSH ONETIME ONE 11/10/20 10:36 LIPASE [CHEM] Stat 11/10/20 10:45 Sodium Chloride 0.9% [Normal Saline] 500 ml IV .BOLUS - Plan Plan:: Will change to inpatient status at this time. Please use this note as the admission H&P for inpatient status. 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 Benadryl and Phenergan prn nausea vomiting. Protonix 40mg IVP bid with concerns of recent Voltaren usage. Increase Lisinopril to 20mg qd keep metoprolol at 50mg qd. Continue IV NS at 100mls/hr. See care plan as above detailed in the diagnosis. Sepsis: Risk is there. Although WBC improving lactic normal. Daily CMP CBC Lactic acid and CRP. DVT: Due to rectal bleeding at this time no anticoagulation will place TEDs. Code status Full As the patient is unable to tolerated much for oral intake with abd pain and diarrhea she will need to stay for hydration and continued evaluation of her blood diarrhea leukocytosis and abd pain. Pending stool cultures and possibly Colonoscopy 7/1/[address] Perry. Upon discharge and follow up. Will need an MRI abd with pancreatic phasing for possible mass/lesion and dedicated chest CT for pulmonary nodule as well.
[2020-11-10] MEDS ORDERED: Sodium Chloride 0.9% 500 ML IV SCH (10:45)
[2020-11-10] MEDS ORDERED: Lisinopril 10 MG Tab PO ONE (11:09)
[2020-11-10] MEDS ORDERED: hydrALAZINE 20 MG/ML SDV IVPUSH ONE (11:25)
[2020-11-10] MEDS ORDERED: Metoprolol Tartrate 25 MG Tab PO ONE (11:33)
[2020-11-10] MEDS ORDERED: Metoprolol Tartrate 50 MG Tab PO SCH (11:45)
[2020-11-10] MEDS ORDERED: diphenhydrAMINE 50 MG/ML SDV IVPUSH PRN (12:00)
[2020-11-10] MEDS ORDERED: Promethazine 25 MG/ML SDV IM PRN (12:00)
[2020-11-10] MEDS: Pantoprazole 40 MG Vial IVPUSH SCH (12:32)
[2020-11-10] MEDS ORDERED: Labetalol 20 MG/4 ML Syringe IVPUSH ONE ×2 (13:03→14:29)
[2020-11-10] MEDS: Nicotine 21 MG/24 Hr Patch TRDERM SCH (15:03)
[2020-11-10] MEDS ORDERED: Promethazine 12.5 MG in Sodium Chloride 0.9% 100 ML IV SCH (16:00)
[2020-11-10] MEDS: amLODIPine 5 MG Tab PO SCH (21:02)
[2020-11-10] MEDS: hydrALAZINE 20 MG/ML SDV IVPUSH PRN (21:03)
[2020-11-11] MEDS: Pantoprazole 40 MG Vial IVPUSH SCH ×2 (00:19→12:06)
[2020-11-11] MEDS: hydrALAZINE 20 MG/ML SDV IVPUSH PRN ×2 (01:07→04:53)
[2020-11-11] MEDS: Sodium Chloride 0.9% 1,000 ML IV SCH (04:50)
[2020-11-11 07:55] LABS: CHLORIDE,CL 106 mmol/L (98-107); SODIUM,NA 140 mmol/L (136-145)
[2020-11-11] MEDS: Nicotine 21 MG/24 Hr Patch TRDERM SCH (08:28)
[2020-11-11] MEDS: Metoprolol Tartrate 50 MG Tab PO SCH (08:31)
[2020-11-11] MEDS: amLODIPine 5 MG Tab PO SCH (08:31)
[2020-11-11] MEDS: Lisinopril 20 MG Tab PO SCH (08:31)
[2020-11-11] MEDS: Acetaminophen 325 MG Tab PO PRN ×2 (08:38→22:52)
[2020-11-11] MEDS ORDERED: Labetalol 20 MG/4 ML Syringe IVPUSH ONE (08:51)
[2020-11-11] MEDS: D5 1/2 NS w/ 40 mEq/L KCl 1,000 ML IV SCH ×2 (09:22→21:44)
[2020-11-11] MEDS: Remove Patch NICOTINE PATCH TRDERM SCH (09:30)
[2020-11-11] MEDS ORDERED: Magnesium Sulfate/Water 2 GM in Premix Bag 1 BAG IV ONE (09:43)
--- NOTE | 2020-11-11 09:50 | PCM.PN ---
- General Info Date of Service: 11/11/20 Subjective Update: Pt. states that she is feeling better today. Her diarrhea has improved. Pt. still feels chilled and fatigued. She complains of improving diffuse abdominal cramping. Pt. did undergo CT abdomen and pelvis yesterday which did show evidence of colitis. Stool cultures, O and P, and C diff were ordered and are pending. Blood pressure continues to be elevated. Since admission, pt. lisinopril has been increased to 10mg daily from 5 mg daily, toprol XL has been increased to 50mg daily from 25mg, toprol XL has been increased to 50mg daily, and she was started on amlodipine 5mg daily. Pt. is not complaining of any chest pain, palpitations, or shortness of breath. Pt. did have a mildly increased troponin this AM at 0.164. EKG was obtain and is negative for acute pathology. Functional Status: Reports: Pain Controlled - Review of Systems General: Reports: No Symptoms HEENT: Reports: No Symptoms Pulmonary: Reports: No Symptoms Cardiovascular: Reports: No Symptoms. Denies: Chest Pain, Palpitations, Dyspnea on Exertion, Orthopnea, PND, Edema, Lightheadedness Gastrointestinal: Reports: Abdominal Pain Genitourinary: Reports: No Symptoms Musculoskeletal: Reports: No Symptoms Skin: Reports: No Symptoms Neurological: Reports: No Symptoms Psychiatric: Reports: No Symptoms - Patient Data Vitals - Most Recent: Last Vital Signs Temp 37.7 C 11/11/20 08:30 Pulse 120 H 11/11/20 08:31 Resp 16 11/11/20 04:00 BP 149/71 H 11/11/20 08:31 Pulse Ox 95 11/11/20 04:00 Weight - Most Recent: 67.721 kg I&O - Last 24 Hours: Intake & Output 11/10/20 11/11/20 11/11/20 22:59 06:59 14:59 Intake Total 1482 1024 Balance 1482 1024 Lab Results Last 24 Hours: Laboratory Results - last 24 hr 11/10/20 11/10/20 11/11/20 Range/Units 07:41 13:13 07:20 WBC 15.1 H (4.0-10.2) K/uL RBC 4.44 (3.77-5.09) M/uL Hgb 13.1 (11.7-15.5) g/dL Hct 38.2 (34.0-46.0) % MCV 86.0 (84.0-98.0) fL MCH 29.5 (28.2-33.3) pg MCHC 34.3 (31.7-36.0) g/dL RDW 14.4 H (11.2-14.1) % Plt Count 248 (150-350) K/uL Neut % (Auto) 82.7 H (45.0-80.0) % Lymph % (Auto) 9.8 L (10.0-50.0) % [place] % (Auto) 6.9 (2.0-14.0) % Eos % (Auto) 0.3 (0.0-5.0) % Baso % (Auto) 0.3 (0.0-2.0) % Neut # (Auto) 12.48 H (1.40-7.00) K/uL Lymph # (Auto) 1.48 (0.50-3.50) K/uL [place] # (Auto) 1.04 H (0.00-1.00) K/uL Eos # (Auto) 0.04 (0.00-0.50) K/uL Baso # (Auto) 0.04 (0.00-0.20) K/uL Sodium (136-145) mmol/L Potassium (3.5-5.1) mmol/L Chloride (98-107) mmol/L Carbon Dioxide (21.0-32.0) mmol/L BUN (7-18) mg/dL Creatinine (0.51-1.17) mg/dL Est Cr Clr Drug Dosing mL/min Estimated GFR (MDRD) mL/min Glucose (70-99) mg/dL Lactic Acid (0.4-2.0) mmol/L Calcium (8.5-10.1) mg/dL Magnesium (1.8-2.4) mg/dL Total Bilirubin (0.2-1.0) mg/dL AST (15-37) U/L ALT (12-78) U/L Alkaline Phosphatase (46-116) IU/L Troponin I (0.000-0.056) ng/mL C-Reactive Protein (<=0.9) mg/dL Total Protein (6.4-8.2) g/dL Albumin (3.4-5.0) g/dL Lipase 127 (73-393) U/L TSH, Ultra Sensitive (0.358-3.740) mIU/mL Specimen Type Urinvoid Urine Color Yellow Urine Appearance Clear Urine pH 7.0 (5.0-9.0) Ur Specific [place] 1.020 (1.005-1.030) Urine Protein Negative (NEGATIVE) mg/dL Urine Glucose (UA) Negative (NEGATIVE) mg/dL Urine Ketones 15 H (NEGATIVE) mg/dL Urine Occult Blood Trace-intact H (NEGATIVE) Urine Nitrite Negative (NEGATIVE) Urine Bilirubin Negative (NEGATIVE) Urine Urobilinogen 0.2 (0.2-1.0) E.U./dL Ur Leukocyte Esterase Negative (NEGATIVE) Urine RBC 5-10 H /HPF Urine WBC 0-5 /HPF Ur Epithelial Cells Rare /LPF Urine Bacteria Few (NONE TO FEW) /HPF 11/11/20 11/11/20 11/11/20 Range/Units 07:20 07:20 07:20 WBC (4.0-10.2) K/uL RBC (3.77-5.09) M/uL Hgb (11.7-15.5) g/dL Hct (34.0-46.0) % MCV (84.0-98.0) fL MCH (28.2-33.3) pg MCHC (31.7-36.0) g/dL RDW (11.2-14.1) % Plt Count (150-350) K/uL Neut % (Auto) (45.0-80.0) % Lymph % (Auto) (10.0-50.0) % [place] % (Auto) (2.0-14.0) % Eos % (Auto) (0.0-5.0) % Baso % (Auto) (0.0-2.0) % Neut # (Auto) (1.40-7.00) K/uL Lymph # (Auto) (0.50-3.50) K/uL [place] # (Auto) (0.00-1.00) K/uL Eos # (Auto) (0.00-0.50) K/uL Baso # (Auto) (0.00-0.20) K/uL Sodium 140 (136-145) mmol/L Potassium 3.0 L (3.5-5.1) mmol/L Chloride 106 (98-107) mmol/L Carbon Dioxide 20.4 L (21.0-32.0) mmol/L BUN 8 (7-18) mg/dL Creatinine 0.58 (0.51-1.17) mg/dL Est Cr Clr Drug Dosing 76.48 mL/min Estimated GFR (MDRD) > 60 mL/min Glucose 114 H (70-99) mg/dL Lactic Acid 0.7 (0.4-2.0) mmol/L Calcium 7.8 L (8.5-10.1) mg/dL Magnesium 1.7 L (1.8-2.4) mg/dL Total Bilirubin 0.7 (0.2-1.0) mg/dL AST 13 L (15-37) U/L ALT 26 (12-78) U/L Alkaline Phosphatase 162 H (46-116) IU/L Troponin I (0.000-0.056) ng/mL C-Reactive Protein 11.7 H (<=0.9) mg/dL Total Protein 6.6 (6.4-8.2) g/dL Albumin 2.5 L (3.4-5.0) g/dL Lipase (73-393) U/L TSH, Ultra Sensitive (0.358-3.740) mIU/mL Specimen Type Urine Color Urine Appearance Urine pH (5.0-9.0) Ur Specific [place] (1.005-1.030) Urine Protein (NEGATIVE) mg/dL Urine Glucose (UA) (NEGATIVE) mg/dL Urine Ketones (NEGATIVE) mg/dL Urine Occult Blood (NEGATIVE) Urine Nitrite (NEGATIVE) Urine Bilirubin (NEGATIVE) Urine Urobilinogen (0.2-1.0) E.U./dL Ur Leukocyte Esterase (NEGATIVE) Urine RBC /HPF Urine WBC /HPF Ur Epithelial Cells /LPF Urine Bacteria (NONE TO FEW) /HPF 11/11/20 11/11/20 Range/Units 07:20 07:20 WBC (4.0-10.2) K/uL RBC (3.77-5.09) M/uL Hgb (11.7-15.5) g/dL Hct (34.0-46.0) % MCV (84.0-98.0) fL MCH (28.2-33.3) pg MCHC (31.7-36.0) g/dL RDW (11.2-14.1) % Plt Count (150-350) K/uL Neut % (Auto) (45.0-80.0) % Lymph % (Auto) (10.0-50.0) % [place] % (Auto) (2.0-14.0) % Eos % (Auto) (0.0-5.0) % Baso % (Auto) (0.0-2.0) % Neut # (Auto) (1.40-7.00) K/uL Lymph # (Auto) (0.50-3.50) K/uL [place] # (Auto) (0.00-1.00) K/uL Eos # (Auto) (0.00-0.50) K/uL Baso # (Auto) (0.00-0.20) K/uL Sodium (136-145) mmol/L Potassium (3.5-5.1) mmol/L Chloride (98-107) mmol/L Carbon Dioxide (21.0-32.0) mmol/L BUN (7-18) mg/dL Creatinine (0.51-1.17) mg/dL Est Cr Clr Drug Dosing mL/min Estimated GFR (MDRD) mL/min Glucose (70-99) mg/dL Lactic Acid (0.4-2.0) mmol/L Calcium (8.5-10.1) mg/dL Magnesium (1.8-2.4) mg/dL Total Bilirubin (0.2-1.0) mg/dL AST (15-37) U/L ALT (12-78) U/L Alkaline Phosphatase (46-116) IU/L Troponin I 0.164 H* (0.000-0.056) ng/mL C-Reactive Protein (<=0.9) mg/dL Total Protein (6.4-8.2) g/dL Albumin (3.4-5.0) g/dL Lipase (73-393) U/L TSH, Ultra Sensitive 1.140 (0.358-3.740) mIU/mL Specimen Type Urine Color Urine Appearance Urine pH (5.0-9.0) Ur Specific [place] (1.005-1.030) Urine Protein (NEGATIVE) mg/dL Urine Glucose (UA) (NEGATIVE) mg/dL Urine Ketones (NEGATIVE) mg/dL Urine Occult Blood (NEGATIVE) Urine Nitrite (NEGATIVE) Urine Bilirubin (NEGATIVE) Urine Urobilinogen (0.2-1.0) E.U./dL Ur Leukocyte Esterase (NEGATIVE) Urine RBC /HPF Urine WBC /HPF Ur Epithelial Cells /LPF Urine Bacteria (NONE TO FEW) /HPF Med Orders - Current: Current Medications Acetaminophen (Acetaminophen 325 Mg Tab) 650 mg PO Q4H PRN PRN Reason: Pain/Fever Last Admin: 11/11/20 08:38 Dose: 650 mg Documented by: Amlodipine Besylate (Amlodipine 5 Mg Tab) 5 mg PO DAILY [facility] Last Admin: 11/11/20 08:31 Dose: 5 mg Documented by: Diphenhydramine HCl (Diphenhydramine 50 Mg/Ml Sdv) 25 mg IVPUSH Q6H PRN PRN Reason: Nausea/Vomiting Hydralazine HCl (Hydralazine 20 Mg/Ml Sdv) 20 mg IVPUSH Q4H PRN PRN Reason: Hypertension Last Admin: 11/11/20 04:53 Dose: 20 mg Documented by: Potassium Chloride/Dextrose/Sod Cl (D5 1/2 Ns W/ 40 Meq/L Kcl) 1,000 mls @ 100 mls/hr IV ASDIRECTED [facility] Last Admin: 11/11/20 09:22 Dose: 100 mls/hr Documented by: Magnesium Sulfate 2 gm/ Premix 50 mls @ 25 mls/hr IV ONETIME ONE Stop: 11/11/20 11:42 Lisinopril (Lisinopril 20 Mg Tab) 20 mg PO DAILY [facility] Last Admin: 11/11/20 08:31 Dose: 20 mg Documented by: Metoprolol Tartrate (Metoprolol Tartrate 50 Mg Tab) 50 mg PO DAILY [facility] Last Admin: 11/11/20 08:31 Dose: 50 mg Documented by: Miscellaneous Information (Remove Patch Nicotine Patch) 1 ea TRDERM DAILY [facility] Last Admin: 11/11/20 09:30 Dose: 1 ea Documented by: Nicotine (Nicotine 21 Mg/24 Hr Patch) 21 mg TRDERM DAILY [facility] Last Admin: 11/11/20 08:28 Dose: 21 mg Documented by: Pantoprazole Sodium (Pantoprazole 40 Mg Vial) 40 mg IVPUSH Q12H MARÍA Last Admin: 11/11/20 00:19 Dose: 40 mg Documented by: Promethazine HCl (Promethazine 25 Mg/Ml Sdv) 12.5 mg IM Q8H PRN PRN Reason: NAUSEA/VOMITING Last Admin: 11/10/20 20:01 Dose: 12.5 mg Documented by: Discontinued Medications Famotidine (Famotidine 20 Mg/2 Ml Sdv) 20 mg IVPUSH ONETIME ONE Stop: 11/08/20 15:00 Last Admin: 11/08/20 15:03 Dose: 20 mg Documented by: Hydralazine HCl (Hydralazine 20 Mg/Ml Sdv) 10 mg IVPUSH ONETIME ONE Stop: 11/10/20 11:26 Last Admin: 11/10/20 11:45 Dose: 10 mg Documented by: Sodium Chloride (Normal Saline) 1,000 mls @ 999 mls/hr IV .BOLUS ONE Stop: 11/08/20 15:54 Last Admin: 11/08/20 15:01 Dose: 999 mls/hr Documented by: Sodium Chloride (Normal Saline) 1,000 mls @ 150 mls/hr IV ASDIRECTED [facility] Stop: 11/09/20 23:09 Last Admin: 11/08/20 20:08 Dose: 150 mls/hr Documented by: Sodium Chloride (Normal Saline) 1,000 mls @ 500 mls/hr IV .BOLUS ONE Stop: 11/08/20 20:07 Last Admin: 11/08/20 19:49 Dose: 500 mls/hr Documented by: Sodium Chloride (Normal Saline) 1,000 mls @ 100 mls/hr IV ASDIRECTED [facility] Last Admin: 11/11/20 04:50 Dose: 100 mls/hr Documented by: Sodium Chloride (Normal Saline) 500 mls @ 999 mls/hr IV .BOLUS [facility] Last Admin: 11/10/20 11:51 Dose: 999 mls/hr Documented by: Labetalol HCl (Labetalol 20 Mg/4 Ml Syringe) 20 mg IVPUSH ONETIME ONE; Protocol Stop: 11/10/20 13:04 Last Admin: 11/10/20 13:40 Dose: 20 mg Documented by: Labetalol HCl (Labetalol 20 Mg/4 Ml Syringe) 40 mg IVPUSH ONETIME ONE; Protocol Stop: 11/10/20 14:30 Last Admin: 11/10/20 15:02 Dose: 40 mg Documented by: Labetalol HCl (Labetalol 20 Mg/4 Ml Syringe) 40 mg IVPUSH ONETIME ONE; Protocol Stop: 11/11/20 08:52 Last Admin: 11/11/20 09:22 Dose: 40 mg Documented by: Lisinopril (Lisinopril 5 Mg Tab) 5 mg PO ONETIME ONE Stop: 11/08/20 16:04 Last Admin: 11/08/20 16:45 Dose: 5 mg Documented by: Lisinopril (Lisinopril 5 Mg Tab) 5 mg PO DAILY [facility] Last Admin: 11/09/20 08:04 Dose: 5 mg Documented by: Lisinopril (Lisinopril 5 Mg Tab) 5 mg PO ONETIME ONE Stop: 11/09/20 13:24 Last Admin: 11/09/20 14:16 Dose: 5 mg Documented by: Lisinopril (Lisinopril 10 Mg Tab) 10 mg PO DAILY [facility] Last Admin: 11/10/20 07:25 Dose: 10 mg Documented by: Lisinopril (Lisinopril 10 Mg Tab) 10 mg PO ONETIME ONE Stop: 11/10/20 11:10 Last Admin: 11/10/20 11:45 Dose: 10 mg Documented by: Metoprolol Tartrate (Metoprolol Tartrate 25 Mg Tab) 25 mg PO ONETIME ONE Stop: 11/08/20 16:04 Last Admin: 11/08/20 16:46 Dose: 25 mg Documented by: Metoprolol Tartrate (Metoprolol Tartrate 25 Mg Tab) 25 mg PO DAILY [facility] Last Admin: 11/10/20 07:25 Dose: 25 mg Documented by: Metoprolol Tartrate (Metoprolol Tartrate 50 Mg Tab) 50 mg PO ONETIME ONE Stop: 11/09/20 17:23 Last Admin: 11/09/20 17:46 Dose: 50 mg Documented by: Metoprolol Tartrate (Metoprolol Tartrate 50 Mg Tab) 50 mg PO DAILY [facility] Metoprolol Tartrate (Metoprolol Tartrate 25 Mg Tab) 25 mg PO ONETIME ONE Stop: 11/10/20 11:34 Last Admin: 11/10/20 11:45 Dose: 25 mg Documented by: Morphine Sulfate (Morphine 4 Mg/Ml Syringe) 4 mg IVPUSH ONETIME ONE Stop: 11/10/20 10:36 Last Admin: 11/10/20 10:51 Dose: 4 mg Documented by: Ondansetron HCl (Ondansetron 4 Mg/2 Ml Sdv) 4 mg IVPUSH ONETIME ONE Stop: 11/08/20 14:55 Last Admin: 11/08/20 15:04 Dose: 4 mg Documented by: Ondansetron HCl (Ondansetron 4 Mg/2 Ml Sdv) 4 mg IVPUSH Q6H PRN PRN Reason: Nausea/Vomiting Pantoprazole Sodium (Pantoprazole 40 Mg Vial) 40 mg IVPUSH ONETIME ONE Stop: 11/08/20 15:00 Last Admin: 11/08/20 15:04 Dose: 40 mg Documented by: Pantoprazole Sodium (Pantoprazole 40 Mg Vial) 40 mg IVPUSH ONETIME ONE Stop: 11/09/20 08:01 Last Admin: 11/09/20 08:05 Dose: 40 mg Documented by: - Exam General: Alert, Oriented HEENT: Pupils Equal, Pupils Reactive, EOMI, Mucous Membr. Moist/[place] Neck: Supple Lungs: Clear to Auscultation, Normal Respiratory Effort Cardiovascular: Regular Rate, Regular Rhythm GI/Abdominal Exam: Normal Bowel Sounds, Soft, No Organomegaly, Tender (diffusely tender) (Female) Exam: Normal External Exam, Normal Speculum Exam Back Exam: Normal Inspection, Full Range of Motion Extremities: Normal Inspection, Normal Range of Motion, Non-Tender, No Pedal Edema, Normal Capillary Refill Skin: Warm, Dry, Intact Neurological: No New Focal Deficit Psy/Mental Status: Alert, Normal Affect, Normal Mood #1 Interpretation Rhythm: NSR [place]: Normal P-Wave: Present QRS: Normal ST-T: Normal QT: Normal - Patient Data Lab Results Last 24 hrs: Laboratory Results - last 24 hr 11/10/20 11/10/20 11/11/20 Range/Units 07:41 13:13 07:20 WBC 15.1 H (4.0-10.2) K/uL RBC 4.44 (3.77-5.09) M/uL Hgb 13.1 (11.7-15.5) g/dL Hct 38.2 (34.0-46.0) % MCV 86.0 (84.0-98.0) fL MCH 29.5 (28.2-33.3) pg MCHC 34.3 (31.7-36.0) g/dL RDW 14.4 H (11.2-14.1) % Plt Count 248 (150-350) K/uL Neut % (Auto) 82.7 H (45.0-80.0) % Lymph % (Auto) 9.8 L (10.0-50.0) % [place] % (Auto) 6.9 (2.0-14.0) % Eos % (Auto) 0.3 (0.0-5.0) % Baso % (Auto) 0.3 (0.0-2.0) % Neut # (Auto) 12.48 H (1.40-7.00) K/uL Lymph # (Auto) 1.48 (0.50-3.50) K/uL [place] # (Auto) 1.04 H (0.00-1.00) K/uL Eos # (Auto) 0.04 (0.00-0.50) K/uL Baso # (Auto) 0.04 (0.00-0.20) K/uL Sodium (136-145) mmol/L Potassium (3.5-5.1) mmol/L Chloride (98-107) mmol/L Carbon Dioxide (21.0-32.0) mmol/L BUN (7-18) mg/dL Creatinine (0.51-1.17) mg/dL Est Cr Clr Drug Dosing mL/min Estimated GFR (MDRD) mL/min Glucose (70-99) mg/dL Lactic Acid (0.4-2.0) mmol/L Calcium (8.5-10.1) mg/dL Magnesium (1.8-2.4) mg/dL Total Bilirubin (0.2-1.0) mg/dL AST (15-37) U/L ALT (12-78) U/L Alkaline Phosphatase (46-116) IU/L Troponin I (0.000-0.056) ng/mL C-Reactive Protein (<=0.9) mg/dL Total Protein (6.4-8.2) g/dL Albumin (3.4-5.0) g/dL Lipase 127 (73-393) U/L TSH, Ultra Sensitive (0.358-3.740) mIU/mL Specimen Type Urinvoid Urine Color Yellow Urine Appearance Clear Urine pH 7.0 (5.0-9.0) Ur Specific [place] 1.020 (1.005-1.030) Urine Protein Negative (NEGATIVE) mg/dL Urine Glucose (UA) Negative (NEGATIVE) mg/dL Urine Ketones 15 H (NEGATIVE) mg/dL Urine Occult Blood Trace-intact H (NEGATIVE) Urine Nitrite Negative (NEGATIVE) Urine Bilirubin Negative (NEGATIVE) Urine Urobilinogen 0.2 (0.2-1.0) E.U./dL Ur Leukocyte Esterase Negative (NEGATIVE) Urine RBC 5-10 H /HPF Urine WBC 0-5 /HPF Ur Epithelial Cells Rare /LPF Urine Bacteria Few (NONE TO FEW) /HPF 11/11/20 11/11/20 11/11/20 Range/Units 07:20 07:20 07:20 WBC (4.0-10.2) K/uL RBC (3.77-5.09) M/uL Hgb (11.7-15.5) g/dL Hct (34.0-46.0) % MCV (84.0-98.0) fL MCH (28.2-33.3) pg MCHC (31.7-36.0) g/dL RDW (11.2-14.1) % Plt Count (150-350) K/uL Neut % (Auto) (45.0-80.0) % Lymph % (Auto) (10.0-50.0) % [place] % (Auto) (2.0-14.0) % Eos % (Auto) (0.0-5.0) % Baso % (Auto) (0.0-2.0) % Neut # (Auto) (1.40-7.00) K/uL Lymph # (Auto) (0.50-3.50) K/uL [place] # (Auto) (0.00-1.00) K/uL Eos # (Auto) (0.00-0.50) K/uL Baso # (Auto) (0.00-0.20) K/uL Sodium 140 (136-145) mmol/L Potassium 3.0 L (3.5-5.1) mmol/L Chloride 106 (98-107) mmol/L Carbon Dioxide 20.4 L (21.0-32.0) mmol/L BUN 8 (7-18) mg/dL Creatinine 0.58 (0.51-1.17) mg/dL Est Cr Clr Drug Dosing 76.48 mL/min Estimated GFR (MDRD) > 60 mL/min Glucose 114 H (70-99) mg/dL Lactic Acid 0.7 (0.4-2.0) mmol/L Calcium 7.8 L (8.5-10.1) mg/dL Magnesium 1.7 L (1.8-2.4) mg/dL Total Bilirubin 0.7 (0.2-1.0) mg/dL AST 13 L (15-37) U/L ALT 26 (12-78) U/L Alkaline Phosphatase 162 H (46-116) IU/L Troponin I (0.000-0.056) ng/mL C-Reactive Protein 11.7 H (<=0.9) mg/dL Total Protein 6.6 (6.4-8.2) g/dL Albumin 2.5 L (3.4-5.0) g/dL Lipase (73-393) U/L TSH, Ultra Sensitive (0.358-3.740) mIU/mL Specimen Type Urine Color Urine Appearance Urine pH (5.0-9.0) Ur Specific [place] (1.005-1.030) Urine Protein (NEGATIVE) mg/dL Urine Glucose (UA) (NEGATIVE) mg/dL Urine Ketones (NEGATIVE) mg/dL Urine Occult Blood (NEGATIVE) Urine Nitrite (NEGATIVE) Urine Bilirubin (NEGATIVE) Urine Urobilinogen (0.2-1.0) E.U./dL Ur Leukocyte Esterase (NEGATIVE) Urine RBC /HPF Urine WBC /HPF Ur Epithelial Cells /LPF Urine Bacteria (NONE TO FEW) /HPF 11/11/20 11/11/20 Range/Units 07:20 07:20 WBC (4.0-10.2) K/uL RBC (3.77-5.09) M/uL Hgb (11.7-15.5) g/dL Hct (34.0-46.0) % MCV (84.0-98.0) fL MCH (28.2-33.3) pg MCHC (31.7-36.0) g/dL RDW (11.2-14.1) % Plt Count (150-350) K/uL Neut % (Auto) (45.0-80.0) % Lymph % (Auto) (10.0-50.0) % [place] % (Auto) (2.0-14.0) % Eos % (Auto) (0.0-5.0) % Baso % (Auto) (0.0-2.0) % Neut # (Auto) (1.40-7.00) K/uL Lymph # (Auto) (0.50-3.50) K/uL [place] # (Auto) (0.00-1.00) K/uL Eos # (Auto) (0.00-0.50) K/uL Baso # (Auto) (0.00-0.20) K/uL Sodium (136-145) mmol/L Potassium (3.5-5.1) mmol/L Chloride (98-107) mmol/L Carbon Dioxide (21.0-32.0) mmol/L BUN (7-18) mg/dL Creatinine (0.51-1.17) mg/dL Est Cr Clr Drug Dosing mL/min Estimated GFR (MDRD) mL/min Glucose (70-99) mg/dL Lactic Acid (0.4-2.0) mmol/L Calcium (8.5-10.1) mg/dL Magnesium (1.8-2.4) mg/dL Total Bilirubin (0.2-1.0) mg/dL AST (15-37) U/L ALT (12-78) U/L Alkaline Phosphatase (46-116) IU/L Troponin I 0.164 H* (0.000-0.056) ng/mL C-Reactive Protein (<=0.9) mg/dL Total Protein (6.4-8.2) g/dL Albumin (3.4-5.0) g/dL Lipase (73-393) U/L TSH, Ultra Sensitive 1.140 (0.358-3.740) mIU/mL Specimen Type Urine Color Urine Appearance Urine pH (5.0-9.0) Ur Specific [place] (1.005-1.030) Urine Protein (NEGATIVE) mg/dL Urine Glucose (UA) (NEGATIVE) mg/dL Urine Ketones (NEGATIVE) mg/dL Urine Occult Blood (NEGATIVE) Urine Nitrite (NEGATIVE) Urine Bilirubin (NEGATIVE) Urine Urobilinogen (0.2-1.0) E.U./dL Ur Leukocyte Esterase (NEGATIVE) Urine RBC /HPF Urine WBC /HPF Ur Epithelial Cells /LPF Urine Bacteria (NONE TO FEW) /HPF Result Diagrams: 11/11/20 07:20 11/11/20 07:20 Sepsis Event Note - Evaluation Sepsis Screening Result: No Definite Risk - Focused Exam Vital Signs: Vital Signs Temp Temp Pulse Pulse Pulse Resp BP 11/11/20 08:31 120 H 149/71 H 11/11/20 08:30 37.7 C 123 H 11/11/20 08:25 11/11/20 04:00 36.7 C 110 H 16 11/11/20 00:00 36.8 C 104 H 16 BP BP Pulse Ox 11/11/20 08:31 11/11/20 08:30 191/49 H 11/11/20 08:25 210/70 H 11/11/20 04:00 182/60 H 95 11/11/20 00:00 200/80 H 94 L - Problem List Review Problem List Initiated/Reviewed/Updated: Yes - My Orders Last 24 Hours: My Active Orders 11/11/20 09:43 Magnesium Sulfate/Water [Magnesium Sulfate in Water 2 GM/50 ML] 2 gm Premix Bag 1 bag IV ONETIME 11/11/20 15:00 TROPONIN I [CHEM] Timed - Plan Plan:: Will change to inpatient status at this time. Please use this note as the admission H&P for inpatient status. 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 Benadryl and Phenergan prn nausea vomiting. Protonix 40mg IVP bid with concerns of recent Voltaren usage. Increase Lisinopril to 20mg qd keep metoprolol at 50mg qd. Continue IV NS at 100mls/hr. See care plan as above detailed in the diagnosis. Sepsis: Risk is there. Although WBC improving lactic normal. Daily CMP CBC Lactic acid and CRP. DVT: Due to rectal bleeding at this time no anticoagulation will place TEDs. Code status Full As the patient is unable to tolerated much for oral intake with abd pain and diarrhea she will need to stay for hydration and continued evaluation of her blood diarrhea leukocytosis and abd pain. Pending stool cultures and possibly Colonoscopy 11/11/[address] Perry. Upon discharge and follow up. Will need an MRI abd with pancreatic phasing for possible mass/lesion and dedicated chest CT for pulmonary nodule as well. 11/11/2020 Owen Marino PA-C Will trend troponin. She is not experiencing any current symptoms of ACS. This could be elevated due to prolonged hypertension. Again, EKG was negative for acute ST or T wave abnormality. Optimize blood pressure control today. Likely will need to increase Toprol XL to 100mg daily. Stool studies, including c diff are pending. Pt. will be given 2 grams of mag sulfate IV for decreased mag. Advised patient to ambulate today.
[2020-11-12] MEDS: Pantoprazole 40 MG Vial IVPUSH SCH ×2 (00:44→12:30)
[2020-11-12 07:27] LABS: CHLORIDE,CL 108 mmol/L (98-107); SODIUM,NA 140 mmol/L (136-145)
[2020-11-12] MEDS: Metoprolol Tartrate 50 MG Tab PO SCH (07:51)
[2020-11-12] MEDS: amLODIPine 5 MG Tab PO SCH (07:52)
[2020-11-12] MEDS: D5 1/2 NS w/ 40 mEq/L KCl 1,000 ML IV SCH (07:52)
[2020-11-12] MEDS: Nicotine 21 MG/24 Hr Patch TRDERM SCH (07:52)
[2020-11-12] MEDS: Lisinopril 20 MG Tab PO SCH (07:52)
[2020-11-12] MEDS: Remove Patch NICOTINE PATCH TRDERM SCH (07:52)
[2020-11-12] MEDS ORDERED: Magnesium Sulfate/Water 2 GM in Premix Bag 1 BAG IV ONE (08:54)
--- NOTE | 2020-11-12 10:06 | PCM.PN ---
- General Info Date of Service: 11/12/20 Admission Dx/Problem (Free Text): ABD pain nausea vomiting diarrhea, BRBPR with mucoid discharge as well. Dehydration OUMOU Hypertension. Subjective Update: She is feeling much improved today. She has no abdominal pain other than when she eats and has a little bit of cramping and diarrhea. She has had no nausea or vomiting. No fever no chills. No chest pain or shortness of breath or difficulty breathing. No weakness dizziness lightheadedness. No syncope. No palpitations. No hematuria dysuria or urinary frequency. Her stools have pretty much changed to what she relates is normal diarrhea with no blood in them. She only has them when she eats something. Although she has been eating such things as country gravy potatoes ice cream shakes which really are not appropriate in the clinical setting of diarrhea. She has had no fever no ch ills. No hematuria dysuria or urinary frequency. She is tolerating oral fluids well. Although she does have some diarrhea following any ingestion. She relates that she feels quite a bit better she does not have much of an appetite. Functional Status: Reports: Pain Controlled Pain Score: 0 - Patient Data Vitals - Most Recent: Last Vital Signs Temp 98.0 F 11/12/20 07:52 Pulse 93 11/12/20 07:52 Resp 20 11/12/20 07:52 BP 163/85 H 11/12/20 07:52 Pulse Ox 95 11/12/20 07:52 Weight - Most Recent: 149 lb 4.8 oz I&O - Last 24 Hours: Intake & Output 11/11/20 11/12/20 11/12/20 22:59 06:59 14:59 Intake Total 1201 1266 Balance 1201 1266 Lab Results Last 24 Hours: Laboratory Results - last 24 hr 11/11/20 11/11/20 11/12/20 Range/Units 14:38 20:10 07:00 WBC 10.0 (4.0-10.2) K/uL RBC 4.34 (3.77-5.09) M/uL Hgb 12.9 (11.7-15.5) g/dL Hct 37.9 (34.0-46.0) % MCV 87.3 (84.0-98.0) fL MCH 29.7 (28.2-33.3) pg MCHC 34.0 (31.7-36.0) g/dL RDW 14.7 H (11.2-14.1) % Plt Count 257 (150-350) K/uL Neut % (Auto) 68.4 (45.0-80.0) % Lymph % (Auto) 20.1 (10.0-50.0) % [place] % (Auto) 8.8 (2.0-14.0) % Eos % (Auto) 2.4 (0.0-5.0) % Baso % (Auto) 0.3 (0.0-2.0) % Neut # (Auto) 6.87 (1.40-7.00) K/uL Lymph # (Auto) 2.02 (0.50-3.50) K/uL [place] # (Auto) 0.88 (0.00-1.00) K/uL Eos # (Auto) 0.24 (0.00-0.50) K/uL Baso # (Auto) 0.03 (0.00-0.20) K/uL Sodium (136-145) mmol/L Potassium (3.5-5.1) mmol/L Chloride (98-107) mmol/L Carbon Dioxide (21.0-32.0) mmol/L BUN (7-18) mg/dL Creatinine (0.51-1.17) mg/dL Est Cr Clr Drug Dosing mL/min Estimated GFR (MDRD) mL/min Glucose (70-99) mg/dL Lactic Acid (0.4-2.0) mmol/L Calcium (8.5-10.1) mg/dL Magnesium (1.8-2.4) mg/dL Total Bilirubin (0.2-1.0) mg/dL AST (15-37) U/L ALT (12-78) U/L Alkaline Phosphatase (46-116) IU/L Troponin I 0.182 H* 0.133 H* (0.000-0.056) ng/mL C-Reactive Protein (<=0.9) mg/dL Total Protein (6.4-8.2) g/dL Albumin (3.4-5.0) g/dL 11/12/20 11/12/20 11/12/20 Range/Units 07:00 07:00 07:00 WBC (4.0-10.2) K/uL RBC (3.77-5.09) M/uL Hgb (11.7-15.5) g/dL Hct (34.0-46.0) % MCV (84.0-98.0) fL MCH (28.2-33.3) pg MCHC (31.7-36.0) g/dL RDW (11.2-14.1) % Plt Count (150-350) K/uL Neut % (Auto) (45.0-80.0) % Lymph % (Auto) (10.0-50.0) % [place] % (Auto) (2.0-14.0) % Eos % (Auto) (0.0-5.0) % Baso % (Auto) (0.0-2.0) % Neut # (Auto) (1.40-7.00) K/uL Lymph # (Auto) (0.50-3.50) K/uL [place] # (Auto) (0.00-1.00) K/uL Eos # (Auto) (0.00-0.50) K/uL Baso # (Auto) (0.00-0.20) K/uL Sodium 140 (136-145) mmol/L Potassium 3.5 (3.5-5.1) mmol/L Chloride 108 H (98-107) mmol/L Carbon Dioxide 23.7 (21.0-32.0) mmol/L BUN 5 L (7-18) mg/dL Creatinine 0.61 (0.51-1.17) mg/dL Est Cr Clr Drug Dosing 72.72 mL/min Estimated GFR (MDRD) > 60 mL/min Glucose 140 H (70-99) mg/dL Lactic Acid 0.6 (0.4-2.0) mmol/L Calcium 8.0 L (8.5-10.1) mg/dL Magnesium 1.7 L (1.8-2.4) mg/dL Total Bilirubin 0.4 (0.2-1.0) mg/dL AST 21 (15-37) U/L ALT 37 (12-78) U/L Alkaline Phosphatase 125 H (46-116) IU/L Troponin I 0.074 H* (0.000-0.056) ng/mL C-Reactive Protein 9.4 H (<=0.9) mg/dL Total Protein 6.7 (6.4-8.2) g/dL Albumin 2.6 L (3.4-5.0) g/dL Joshua Results Last 24 Hours: Microbiology 11/10/20 08:58 Cryptosporidium/Giardia - Final Stool / Feces 11/10/20 10:20 Clostridioides difficile Toxin Assay - Final Stool / Feces Med Orders - Current: Current Medications Acetaminophen (Acetaminophen 325 Mg Tab) 650 mg PO Q4H PRN PRN Reason: Pain/Fever Last Admin: 11/11/20 22:52 Dose: 650 mg Documented by: Amlodipine Besylate (Amlodipine 5 Mg Tab) 5 mg PO DAILY [facility] Last Admin: 11/12/20 07:52 Dose: 5 mg Documented by: Diphenhydramine HCl (Diphenhydramine 50 Mg/Ml Sdv) 25 mg IVPUSH Q6H PRN PRN Reason: Nausea/Vomiting Hydralazine HCl (Hydralazine 20 Mg/Ml Sdv) 20 mg IVPUSH Q4H PRN PRN Reason: Hypertension Last Admin: 11/11/20 04:53 Dose: 20 mg Documented by: Potassium Chloride/Dextrose/Sod Cl (D5 1/2 Ns W/ 40 Meq/L Kcl) 1,000 mls @ 100 mls/hr IV ASDIRECTED [facility] Last Admin: 11/12/20 07:52 Dose: 100 mls/hr Documented by: Magnesium Sulfate 2 gm/ Premix 50 mls @ 25 mls/hr IV ONETIME ONE Stop: 11/12/20 10:53 Lisinopril (Lisinopril 20 Mg Tab) 20 mg PO DAILY [facility] Last Admin: 11/12/20 07:52 Dose: 20 mg Documented by: Metoprolol Tartrate (Metoprolol Tartrate 50 Mg Tab) 50 mg PO DAILY [facility] Last Admin: 11/12/20 07:51 Dose: 50 mg Documented by: Miscellaneous Information (Remove Patch Nicotine Patch) 1 ea TRDERM DAILY [facility] Last Admin: 11/12/20 07:52 Dose: 1 ea Documented by: Nicotine (Nicotine 21 Mg/24 Hr Patch) 21 mg TRDERM DAILY [facility] Last Admin: 11/12/20 07:52 Dose: Not Given Documented by: Pantoprazole Sodium (Pantoprazole 40 Mg Vial) 40 mg IVPUSH Q12H [facility] Last Admin: 11/12/20 00:44 Dose: 40 mg Documented by: Promethazine HCl (Promethazine 25 Mg/Ml Sdv) 12.5 mg IM Q8H PRN PRN Reason: NAUSEA/VOMITING Last Admin: 11/10/20 20:01 Dose: 12.5 mg Documented by: Discontinued Medications Famotidine (Famotidine 20 Mg/2 Ml Sdv) 20 mg IVPUSH ONETIME ONE Stop: 11/08/20 15:00 Last Admin: 11/08/20 15:03 Dose: 20 mg Documented by: Hydralazine HCl (Hydralazine 20 Mg/Ml Sdv) 10 mg IVPUSH ONETIME ONE Stop: 11/10/20 11:26 Last Admin: 11/10/20 11:45 Dose: 10 mg Documented by: Sodium Chloride (Normal Saline) 1,000 mls @ 999 mls/hr IV .BOLUS ONE Stop: 11/08/20 15:54 Last Admin: 11/08/20 15:01 Dose: 999 mls/hr Documented by: Sodium Chloride (Normal Saline) 1,000 mls @ 150 mls/hr IV ASDIRECTED [facility] Stop: 11/09/20 23:09 Last Admin: 11/08/20 20:08 Dose: 150 mls/hr Documented by: Sodium Chloride (Normal Saline) 1,000 mls @ 500 mls/hr IV .BOLUS ONE Stop: 11/08/20 20:07 Last Admin: 11/08/20 19:49 Dose: 500 mls/hr Documented by: Sodium Chloride (Normal Saline) 1,000 mls @ 100 mls/hr IV ASDIRECTED [facility] Last Admin: 11/11/20 04:50 Dose: 100 mls/hr Documented by: Sodium Chloride (Normal Saline) 500 mls @ 999 mls/hr IV .BOLUS [facility] Last Admin: 11/10/20 11:51 Dose: 999 mls/hr Documented by: Magnesium Sulfate 2 gm/ Premix 50 mls @ 25 mls/hr IV ONETIME ONE Stop: 11/11/20 11:42 Last Admin: 11/11/20 10:04 Dose: 25 mls/hr Documented by: Labetalol HCl (Labetalol 20 Mg/4 Ml Syringe) 20 mg IVPUSH ONETIME ONE; Protocol Stop: 11/10/20 13:04 Last Admin: 11/10/20 13:40 Dose: 20 mg Documented by: Labetalol HCl (Labetalol 20 Mg/4 Ml Syringe) 40 mg IVPUSH ONETIME ONE; Protocol Stop: 11/10/20 14:30 Last Admin: 11/10/20 15:02 Dose: 40 mg Documented by: Labetalol HCl (Labetalol 20 Mg/4 Ml Syringe) 40 mg IVPUSH ONETIME ONE; Protocol Stop: 11/11/20 08:52 Last Admin: 11/11/20 09:22 Dose: 40 mg Documented by: Lisinopril (Lisinopril 5 Mg Tab) 5 mg PO ONETIME ONE Stop: 11/08/20 16:04 Last Admin: 11/08/20 16:45 Dose: 5 mg Documented by: Lisinopril (Lisinopril 5 Mg Tab) 5 mg PO DAILY [facility] Last Admin: 11/09/20 08:04 Dose: 5 mg Documented by: Lisinopril (Lisinopril 5 Mg Tab) 5 mg PO ONETIME ONE Stop: 11/09/20 13:24 Last Admin: 11/09/20 14:16 Dose: 5 mg Documented by: Lisinopril (Lisinopril 10 Mg Tab) 10 mg PO DAILY [facility] Last Admin: 11/10/20 07:25 Dose: 10 mg Documented by: Lisinopril (Lisinopril 10 Mg Tab) 10 mg PO ONETIME ONE Stop: 11/10/20 11:10 Last Admin: 11/10/20 11:45 Dose: 10 mg Documented by: Metoprolol Tartrate (Metoprolol Tartrate 25 Mg Tab) 25 mg PO ONETIME ONE Stop: 11/08/20 16:04 Last Admin: 11/08/20 16:46 Dose: 25 mg Documented by: Metoprolol Tartrate (Metoprolol Tartrate 25 Mg Tab) 25 mg PO DAILY [facility] Last Admin: 11/10/20 07:25 Dose: 25 mg Documented by: Metoprolol Tartrate (Metoprolol Tartrate 50 Mg Tab) 50 mg PO ONETIME ONE Stop: 11/09/20 17:23 Last Admin: 11/09/20 17:46 Dose: 50 mg Documented by: Metoprolol Tartrate (Metoprolol Tartrate 50 Mg Tab) 50 mg PO DAILY [facility] Metoprolol Tartrate (Metoprolol Tartrate 25 Mg Tab) 25 mg PO ONETIME ONE Stop: 11/10/20 11:34 Last Admin: 11/10/20 11:45 Dose: 25 mg Documented by: Morphine Sulfate (Morphine 4 Mg/Ml Syringe) 4 mg IVPUSH ONETIME ONE Stop: 11/10/20 10:36 Last Admin: 11/10/20 10:51 Dose: 4 mg Documented by: Ondansetron HCl (Ondansetron 4 Mg/2 Ml Sdv) 4 mg IVPUSH ONETIME ONE Stop: 11/08/20 14:55 Last Admin: 11/08/20 15:04 Dose: 4 mg Documented by: Ondansetron HCl (Ondansetron 4 Mg/2 Ml Sdv) 4 mg IVPUSH Q6H PRN PRN Reason: Nausea/Vomiting Pantoprazole Sodium (Pantoprazole 40 Mg Vial) 40 mg IVPUSH ONETIME ONE Stop: 11/08/20 15:00 Last Admin: 11/08/20 15:04 Dose: 40 mg Documented by: Pantoprazole Sodium (Pantoprazole 40 Mg Vial) 40 mg IVPUSH ONETIME ONE Stop: 11/09/20 08:01 Last Admin: 11/09/20 08:05 Dose: 40 mg Documented by: - Exam General: Alert, Oriented HEENT: Pupils Equal, Pupils Reactive, EOMI, Mucous Membr. Moist/[place]ucker Neck: Supple Lungs: Clear to Auscultation, Normal Respiratory Effort Cardiovascular: Regular Rate, Regular Rhythm GI/Abdominal Exam: Normal Bowel Sounds, Soft, No Distention (Was previously but not today much improved. ), Tender (Tenderness mild in the left LLQ although much improved. Rest of the abd not tender. ). No: Guarding, Rigid, Rebound (Female) Exam: Deferred Back Exam: Normal Inspection, Full Range of Motion Extremities: Normal Inspection, Normal Range of Motion, Non-Tender, No Pedal Edema, Normal Capillary Refill Peripheral Pulses: 2+: Radial (L), Radial (R), Posterior Tibial (L), Posterior Tibial (R), Dorsalis Pedis (L), Dorsalis Pedis (R) Skin: Warm, Dry, Intact Neurological: No New Focal Deficit Psy/Mental Status: Alert, Normal Affect, Normal Mood - Patient Data Lab Results Last 24 hrs: Laboratory Results - last 24 hr 11/11/20 11/11/20 11/12/20 Range/Units 14:38 20:10 07:00 WBC 10.0 (4.0-10.2) K/uL RBC 4.34 (3.77-5.09) M/uL Hgb 12.9 (11.7-15.5) g/dL Hct 37.9 (34.0-46.0) % MCV 87.3 (84.0-98.0) fL MCH 29.7 (28.2-33.3) pg MCHC 34.0 (31.7-36.0) g/dL RDW 14.7 H (11.2-14.1) % Plt Count 257 (150-350) K/uL Neut % (Auto) 68.4 (45.0-80.0) % Lymph % (Auto) 20.1 (10.0-50.0) % [place] % (Auto) 8.8 (2.0-14.0) % Eos % (Auto) 2.4 (0.0-5.0) % Baso % (Auto) 0.3 (0.0-2.0) % Neut # (Auto) 6.87 (1.40-7.00) K/uL Lymph # (Auto) 2.02 (0.50-3.50) K/uL [place] # (Auto) 0.88 (0.00-1.00) K/uL Eos # (Auto) 0.24 (0.00-0.50) K/uL Baso # (Auto) 0.03 (0.00-0.20) K/uL Sodium (136-145) mmol/L Potassium (3.5-5.1) mmol/L Chloride (98-107) mmol/L Carbon Dioxide (21.0-32.0) mmol/L BUN (7-18) mg/dL Creatinine (0.51-1.17) mg/dL Est Cr Clr Drug Dosing mL/min Estimated GFR (MDRD) mL/min Glucose (70-99) mg/dL Lactic Acid (0.4-2.0) mmol/L Calcium (8.5-10.1) mg/dL Magnesium (1.8-2.4) mg/dL Total Bilirubin (0.2-1.0) mg/dL AST (15-37) U/L ALT (12-78) U/L Alkaline Phosphatase (46-116) IU/L Troponin I 0.182 H* 0.133 H* (0.000-0.056) ng/mL C-Reactive Protein (<=0.9) mg/dL Total Protein (6.4-8.2) g/dL Albumin (3.4-5.0) g/dL 11/12/20 11/12/20 11/12/20 Range/Units 07:00 07:00 07:00 WBC (4.0-10.2) K/uL RBC (3.77-5.09) M/uL Hgb (11.7-15.5) g/dL Hct (34.0-46.0) % MCV (84.0-98.0) fL MCH (28.2-33.3) pg MCHC (31.7-36.0) g/dL RDW (11.2-14.1) % Plt Count (150-350) K/uL Neut % (Auto) (45.0-80.0) % Lymph % (Auto) (10.0-50.0) % [place] % (Auto) (2.0-14.0) % Eos % (Auto) (0.0-5.0) % Baso % (Auto) (0.0-2.0) % Neut # (Auto) (1.40-7.00) K/uL Lymph # (Auto) (0.50-3.50) K/uL [place] # (Auto) (0.00-1.00) K/uL Eos # (Auto) (0.00-0.50) K/uL Baso # (Auto) (0.00-0.20) K/uL Sodium 140 (136-145) mmol/L Potassium 3.5 (3.5-5.1) mmol/L Chloride 108 H (98-107) mmol/L Carbon Dioxide 23.7 (21.0-32.0) mmol/L BUN 5 L (7-18) mg/dL Creatinine 0.61 (0.51-1.17) mg/dL Est Cr Clr Drug Dosing 72.72 mL/min Estimated GFR (MDRD) > 60 mL/min Glucose 140 H (70-99) mg/dL Lactic Acid 0.6 (0.4-2.0) mmol/L Calcium 8.0 L (8.5-10.1) mg/dL Magnesium 1.7 L (1.8-2.4) mg/dL Total Bilirubin 0.4 (0.2-1.0) mg/dL AST 21 (15-37) U/L ALT 37 (12-78) U/L Alkaline Phosphatase 125 H (46-116) IU/L Troponin I 0.074 H* (0.000-0.056) ng/mL C-Reactive Protein 9.4 H (<=0.9) mg/dL Total Protein 6.7 (6.4-8.2) g/dL Albumin 2.6 L (3.4-5.0) g/dL Result Diagrams: 11/12/20 07:00 11/12/20 07:00 Joshua Results Last 24 hrs: Microbiology 11/10/20 08:58 Cryptosporidium/Giardia - Final Stool / Feces 11/10/20 10:20 Clostridioides difficile Toxin Assay - Final Stool / Feces Sepsis Event Note - Evaluation Sepsis Screening Result: No Definite Risk - Focused Exam Vital Signs: Vital Signs Temp Pulse Pulse Pulse Resp BP BP 11/12/20 07:52 98.0 F 93 20 163/85 H 163/85 H 11/12/20 07:51 93 163/85 H 11/12/20 00:00 98 F 91 16 152/74 H Pulse Ox 11/12/20 07:52 95 11/12/20 07:51 11/12/20 00:00 93 L - Problem List & Annotations (1) Abdominal pain, vomiting, and diarrhea SNOMED Code(s): 78533527 Code(s): R10.9 - UNSPECIFIED ABDOMINAL PAIN; R11.10 - VOMITING, UNSPECIFIED; R19.7 - DIARRHEA, UNSPECIFIED Status: Acute Priority: High Current Visit: Yes Onset Date: 11/08/20 Annotation/Comment:: She is much improved. No N/V no abd pain other than when she eats she gets some cramping with food. Although her food choices have been poor. See collitis section. Clear or mucousy diarrhea no blood. Still waiting on stool cultuers. [facility] parasate negative and c diff negative. Will control her diet more appropriately. Encourage ambulation. Continue fluids. WBC normalized. lactic normal. No fevers. (2) BRBPR (bright red blood per rectum) SNOMED Code(s): 12150209 Code(s): K62.5 - HEMORRHAGE OF ANUS AND RECTUM Status: Acute Priority: Medium Current Visit: Yes Annotation/Comment:: No blood noted in stools. HGB stable. Monitor see collitis (3) Dehydration SNOMED Code(s): 90561436 Code(s): E86.0 - DEHYDRATION Status: Acute Priority: High Current Visit: Yes Onset Date: 11/08/20 Annotation/Comment:: Creatinine still normal. Acute kidney injury still resolved. She is slowly starting to take oral liquids. We will continue until she is consuming normal amounts of oral liquids. Monitor (4) HTN (hypertension) SNOMED Code(s): 29281688 Code(s): I10 - ESSENTIAL (PRIMARY) HYPERTENSION Status: Chronic Priority: Medium Current Visit: Yes Qualifiers: Hypertension type: essential hypertension Annotation/Comment:: BP improving. 160s/80s. On lisinopril 20, amlodipine 5 and metoprolol tart 50 qd. Continue to monitor. Not needed any prn IV. No CP no CP no ACS symptoms. Will probably discharge tomorrow and only change will be to Metop Succ 50mg qd. (5) Nodule of middle lobe of right lung SNOMED Code(s): 118185356 Code(s): R91.1 - SOLITARY PULMONARY NODULE Status: Acute Current Visit: Yes Annotation/Comment:: 7x2 mm nodule in the right middle lobe found on abd CT. Dedicated chest CT once out of hospital at follow up. (6) Pancreatic lesion SNOMED Code(s): 2530403 Code(s): K86.9 - DISEASE OF PANCREAS, UNSPECIFIED Status: Acute Current Visit: Yes Annotation/Comment:: Noted fullness on the pancreatic tail on ct abd pelvis today. A mass or lesion is not excluded. Lipase pending. MRI abd with pancreatic phasing after discharge for further evaluation. (7) Colitis SNOMED Code(s): 32262275 Code(s): K52.9 - NONINFECTIVE GASTROENTERITIS AND COLITIS, UNSPECIFIED Status: Acute Current Visit: Yes Annotation/Comment:: Improving stools. Still has immediate stool after eating although more mucous and watery than any blood. [facility] parasite negative. C diff negative. Waiting on culture. with the improvement will wait for cultures to return. No immodium until we see the cultures hopefully tomorrow. (8) Hypomagnesemia SNOMED Code(s): 307545925 Code(s): E83.42 - HYPOMAGNESEMIA Status: Acute Current Visit: Yes Annotation/Comment:: 1.7 yesterday received 2 grams IVPB and again 1.7 today will replace again with 2 grams IVPB. Most likely from the diarrhea. Continue to monitor. (9) Hypokalemia SNOMED Code(s): 17800889 Code(s): E87.6 - HYPOKALEMIA Status: Acute Current Visit: Yes Annotation/Comment:: 3.0 yesterday. Started on D5 1/2 NS with 40 kcl at 100mls/hr continuous. Today 3.5. Will continue to monitor. Most likely from her diarrhea. (10) Elevated troponin SNOMED Code(s): 124849846, 537470241, 372353908 Code(s): R77.8 - OTHER SPECIFIED ABNORMALITIES OF PLASMA PROTEINS Status: Acute Current Visit: Yes Annotation/Comment:: Troponin was initially noted yesterday mildly elevated at 0.18. She did not have any ACS type symptoms. It trended down over the next 24 hours and continues to improve today. This is most likely due to her quite high hypertension. Cardiology had been consulted yesterday and did not feel that this was ACS. Continue to monitor daily and prn if any symptoms develop. - Problem List Review Problem List Initiated/Reviewed/Updated: Yes - My Orders Last 24 Hours: My Active Orders 11/11/20 09:15 D5 1/2 NS w/ 40 mEq/L KCl 1,000 ml IV ASDIRECTED 11/12/20 08:54 Magnesium Sulfate/Water [Magnesium Sulfate in Water 2 GM/50 ML] 2 gm Premix Bag 1 bag IV ONETIME - Assessment Assessment:: As above - Plan Plan:: Will continue inpatient care most likely until tomorrow until tolerating orals better. We will control what she eats as she is not choosing the best options at this time. Replace mag today. Continue IV fluids. No change BP meds at this time. Encourage ambulation today. Plan on discharge tomorrow. As stools continue to improve no anti-biotic therapy until we see the stool culture results. No anti-motility agents until the same. Sepsis: no signs at this time. WBC normalized. no fevers. DVTs; With recent bloody stool no anticoag, continue TEDs and encourage ambulation. Code status full.
[2020-11-12] MEDS: Acetaminophen 325 MG Tab PO PRN (16:09)
[2020-11-13] MEDS: Pantoprazole 40 MG Vial IVPUSH SCH (00:03)
[2020-11-13] MEDS: Acetaminophen 325 MG Tab PO PRN ×2 (03:55→07:55)
[2020-11-13] MEDS: Remove Patch NICOTINE PATCH TRDERM SCH (07:41)
[2020-11-13] MEDS: Lisinopril 20 MG Tab PO SCH (07:51)
[2020-11-13] MEDS: amLODIPine 5 MG Tab PO SCH (07:51)
[2020-11-13] MEDS: Nicotine 21 MG/24 Hr Patch TRDERM SCH (07:51)
[2020-11-13 08:10] LABS: CHLORIDE,CL 108 mmol/L (98-107); SODIUM,NA 141 mmol/L (136-145)
[2020-11-13] MEDS ORDERED: Metoprolol Succinate 50 MG Tab.ER PO STA (09:26)
[2020-11-13] MEDS ORDERED: Potassium Chloride 10 MEQ Tab.ER PO STA (09:27)
[2020-11-13] MEDS ORDERED: Mineral Oil/Petrolatum/Phenylephrine/Shark Liver Oil Oint 57 GM Tube RECTAL PRN (09:28)
[2020-11-13] MEDS ORDERED: Magnesium Oxide 400 MG Tab PO ONE (09:39)
[2020-11-13] MEDS ORDERED: Potassium Chloride 10 MEQ Tab.ER ONE (09:39)
--- NOTE | 2020-11-13 09:39 | PCM.DCSUM1 ---
Discharge Summary - Hospital Course HPI Initial Comments: Patient was initially placed into observation following the ingestion of a salad from a gas station that she developed nausea vomiting and bloody diarrhea. She also had acute kidney injury. She was initially placed under observation and with minimal improvement was subsequently placed in inpatient status. - Discharge Data Discharge Date: 11/13/20 Discharge Disposition: Home, Self-Care 01 Condition: Good - Referral to Home Health Primary Care Physician: PRATIBHA Reno - Discharge Diagnosis/Problem(s) (1) Abdominal pain, vomiting, and diarrhea SNOMED Code(s): 40833886 ICD Code: R10.9 - UNSPECIFIED ABDOMINAL PAIN; R11.10 - VOMITING, UNSPECIFIED; R19.7 - DIARRHEA, UNSPECIFIED Status: Acute Priority: High Onset Date: 11/08/20 Problem Details: Pepsi upShe is much improved. She is feels good and would like to go home today. She has had no nausea vomiting bloating. She has no abdominal cramping or pain other than when she has a bowel movement. Her diarrhea has been much improved. Please see below. She is tolerating oral foods after we have controlled what she has been eating to be more appropriate at this time. (2) BRBPR (bright red blood per rectum) SNOMED Code(s): 41719216 ICD Code: K62.5 - HEMORRHAGE OF ANUS AND RECTUM Status: Acute Priority: Medium Problem Details: No blood noted in stools. HGB stable actually improving. . Monitor see collitis (3) Dehydration SNOMED Code(s): 29177067 ICD Code: E86.0 - DEHYDRATION Status: Acute Priority: High Onset Date: 11/08/20 Problem Details: Creatinine still normal. Acute kidney injury still resolved. She is tolerating oral fluids and solids well good urinaty output (4) HTN (hypertension) SNOMED Code(s): 42454662 ICD Code: I10 - ESSENTIAL (PRIMARY) HYPERTENSION Status: Chronic Priority: Medium Problem Details: BP improving. 160s/80s. On lisinopril 20, amlodipine 5 and metoprolol tart 50 qd. Continue to monitor. Not needed any prn IV. No CP no CP no ACS symptoms. will switch her to Metoprolol Succ 50mg daily. And keep lisinopril 20mg qd and amlodipine 5mg daily. Qualifiers: Hypertension type: essential hypertension (5) Nodule of middle lobe of right lung SNOMED Code(s): 968879783 ICD Code: R91.1 - SOLITARY PULMONARY NODULE Status: Acute Problem Details: 7x2 mm nodule in the right middle lobe found on abd CT. Dedicated chest CT once out of hospital at follow up. (6) Pancreatic lesion SNOMED Code(s): 8550604 ICD Code: K86.9 - DISEASE OF PANCREAS, UNSPECIFIED Status: Acute Problem Details: Noted fullness on the pancreatic tail on ct abd pelvis today. A mass or lesion is not excluded. Lipase pending. MRI abd with pancreatic phasing after discharge for further evaluation. (7) Colitis SNOMED Code(s): 81575921 ICD Code: K52.9 - NONINFECTIVE GASTROENTERITIS AND COLITIS, UNSPECIFIED Status: Acute Problem Details: Improving stools very infrequent. No blood. some abd cramping. C diff neg and [facility] parasite neg. Still waiting on culture. although she has shown quite a bit of clinical improvement. We will discharge her home today. I will contact her with the results of the bacterial stool cultures which will hopefully be tomorrow. As she is showing improvement in doing well I do not think that we should use any antimotility agents at this time. It is still important for her to follow-up and have a colonoscopy. Discussed at length the importance of appropriate (8) Hypomagnesemia SNOMED Code(s): 101531446 ICD Code: E83.42 - HYPOMAGNESEMIA Status: Acute Problem Details: Magnesium is normal at 2.0 today. She still is having some loose stools. We will give her some magnesium oxide orally today and also send her home with a short course of magnesium to follow-up in the clinic recheck her levels to ensure they are staying appropriate with her continued small amounts of loose stools. (9) Hypokalemia SNOMED Code(s): 16276099 ICD Code: E87.6 - HYPOKALEMIA Status: Acute Problem Details: She has been off the IV normal saline D5W with 40 of KCl throughout the night. Her potassium is minimally low at 3.4. Her stools are much improved. She was given 40 mEq of oral K-Dur today. We will send her home with 20 mg daily as she still has some loose stools to have this rechecked in the clinic (10) Elevated troponin SNOMED Code(s): 135762597, 364141691, 533977308 ICD Code: R77.8 - OTHER SPECIFIED ABNORMALITIES OF PLASMA PROTEINS Status: Acute Problem Details: She has had no chest pain no shortness of breath or difficulty breathing. No palpitations weakness dizziness lightheadedness. Her troponin is normalized. This is most likely due to the severe hypertension she had upon her hospitalization. Follow-up with primary care - Patient Summary/Data Hospital Course: Patient was admitted in the hospital under observation on 11-09-19 1 in the evening for concerns of abdominal cramping nausea vomiting and diarrhea following ingestion of a salad at a gas station. She initially was noted to have a white blood cell count of 27.4 and this was thought to be due to the viral type diarrhea and gastroenteritis that she is having. She also had some acute kidney injury with a creatinine of 1.32. She had some bloody stools with every diarrhea. On 11-10-20 I assumed care of this patient changed her to inpatient status and sent stool cultures ova parasites and C. difficile toxins. She has not been on any antibiotics recently. Her C. difficile is negative and her ova and parasites are negative as well. She was treated symptomatically Benadryl and Phenergan for nausea and vomiting. She did not receive any antimotility agents. Her hemoglobin stayed stable while in the hospital. She received electrolyte replacement through the IV for potassium and magnesium. She was also noted to be quite hypertensive while she was placed into in patient services. There is quite a bit of concern of regular follow-up with primary care and what her underlying blood pressure truly is. She did have some blood pressures 220/110. She did receive multiple doses of as needed hydralazine and labetalol. We increased her metoprolol to 50 mg a day lisinopril 20 mg up from 5 mg and started her on amlodipine 5 mg. She did have quite a bit of improvement of her blood pressures to the 150s systolically. She did also have a mild elevation in her troponin without ever having any ACS type symptoms. This is most likely due to the severe hypertension causing a small bump in her troponin due to strain. Cardiology was consulted and no further advice was given. Subsequently she started tolerating oral fluids as well as solids. Her diarrheal stools returned to typical diarrhea and they were very infrequent. She had some infrequent abdominal cramping which was controlled with Tylenol. We will discharge her home today. I will contact her with the results of the bacterial stool cultures although I think these may be insignificant as she has clinical improvement her white blood cell count has come back to normal. Her lactic acid is normal as well as her CRP. And clinically she has improved quite a bit. There was also findings incidentally of questionable mass or lesion on the pancreas a pulmonary nodule. This can be followed up routinely in the clinic. I discussed at length with the patient the importance of following up in the clinic for the multiple concerns that were identified today. Anything new or worse she is to recheck. - Patient Instructions Diet: Drink 8-10+ Glasses/Day Other/Special Instructions: Drink plenty of fluids especially electrolyte containing materials like Gatorade and or Powerade etc. Easy diet. No dairy products until 48 hours of no diarrhea. Yogurt with live cultures like Activia is the only dairy products and these are actually really good for your bowels. BRATY diet. Nothing fatty, spicy rich. Start slow and slowly advance. Start Lisinopril 20mg daily for BP. RX sent to the pharmacy. Start Amlodipine 5mg daily for BP. RX sent to the pharmacy. Increase your Metoprolol Succinate to 50mg daily for your BP. RX sent to the pharmacy. I will contact you when the stool cultures are returned. Topical ointments such as Preparation H. Try not to use any anti-motility agents such as immodium until I let you know what the stool cultures are. You need to follow up with your PCP in one week this is a must. For recheck of your Blood presssure, labs and also CT scan of your chest with the nodule that was found in there and an MRI of your abd with the pancrease fullness. This can be done on a routine basis. Start taking potassium 1 tablet daily to help keep your potassium up. RX sent to the pharmacy. Start taking Magnessium 1 tablet daily to help keep your magnesiusm up. RX sent to the pharmacy. - Discharge Plan *PRESCRIPTION DRUG MONITORING PROGRAM REVIEWED*: Not Applicable *COPY OF PRESCRIPTION DRUG MONITORING REPORT IN PATIENT JEANNETTE: Not Applicable Prescriptions/Med Rec: lisinopriL [Lisinopril] 20 mg PO DAILY #14 tablet Magnesium Oxide 400 mg PO DAILY #7 tab Metoprolol Succinate 50 mg PO DAILY #30 tab.er.24h amLODIPine [Norvasc] 5 mg PO DAILY #14 tab Potassium Chloride 20 meq PO DAILY #7 tablet.er Home Medications: Home Meds Aspirin 81 mg PO DAILY 11/08/20 [History] Metoprolol Succinate 50 mg PO DAILY #30 tab.er.24h 11/12/20 [Rx] amLODIPine [Norvasc] 5 mg PO DAILY #14 tab 11/12/20 [Rx] lisinopriL [Lisinopril] 20 mg PO DAILY #14 tablet 11/12/20 [Rx] Acetaminophen [Tylenol] 650 mg PO Q4H PRN tablet 11/13/20 [Rx] MO/Pet,Wh/Phenylephrine/Shk Lv [Preparation H Oint] 0 gm RECTAL ASDIRECTED PRN tube 11/13/20 [Rx] Magnesium Oxide 400 mg PO DAILY #7 tab 11/13/20 [Rx] Potassium Chloride 20 meq PO DAILY #7 tablet.er 11/13/20 [Rx] amLODIPine [Norvasc] 5 mg PO DAILY tablet 11/13/20 [Rx] diphenhydrAMINE [Benadryl] 25 mg IVPUSH Q6H PRN sdv 11/13/20 [Rx] hydrALAZINE [Apresoline] 20 mg IVPUSH Q4H PRN sdv 11/13/20 [Rx] lisinopriL [Prinivil] 20 mg PO DAILY tablet 11/13/20 [Rx] Patient Handouts: Food Choices to Help Relieve Diarrhea, Adult, Nausea and Vomiting, Adult, [id number], Hydralazine injection, Dehydration, Elderly, [id number], Diarrhea, Adult, [id number] Forms: ED Department Discharge Referrals: Ameena Cherry PA [Primary Care Provider] - - Discharge Summary/Plan Comment DC Time >30 min.: Yes - General Info Subjective Update: Inpatient day 3, with 2 days of obs prior. The patient is feeling quite a bit better than yesterday. She is tolerating oral fluids after we have controlled what she has been eating. She has no nausea no vomiting. She has some abdominal cramping and pain with eating but she is not having diarrheal stools like she was previously whenever she ate anything. The mucus has resolved. Is more watery stool-like material. There has been no blood in it. Her abdominal pain and cramping resolved shortly after a bowel movement. She has been off her IV fluids since last night. Functional Status: Reports: Pain Controlled, Tolerating Diet, Ambulating, Urinating - Review of Systems General: Reports: No Symptoms HEENT: Reports: No Symptoms Pulmonary: Reports: No Symptoms Cardiovascular: Reports: No Symptoms Gastrointestinal: Reports: Other (As above) Genitourinary: Reports: No Symptoms Musculoskeletal: Reports: No Symptoms Skin: Reports: No Symptoms Neurological: Reports: No Symptoms Psychiatric: Reports: No Symptoms - Patient Data Vitals - Most Recent: Last Vital Signs Temp 98.3 F 11/13/20 08:00 Pulse 89 11/13/20 08:00 Resp 20 11/13/20 08:00 BP 180/95 H 11/13/20 08:00 Pulse Ox 95 11/13/20 08:00 Weight - Most Recent: 149 lb 4.8 oz I&O - Last 24 hours: Intake & Output 11/12/20 11/13/20 11/13/20 22:59 06:59 14:59 Intake Total 850 1175 Balance 850 1175 Lab Results - Last 24 hrs: Laboratory Results - last 24 hr 11/13/20 11/13/20 11/13/20 Range/Units 07:10 07:10 07:10 WBC 9.4 (4.0-10.2) K/uL RBC 4.48 (3.77-5.09) M/uL Hgb 13.1 (11.7-15.5) g/dL Hct 39.0 (34.0-46.0) % MCV 87.1 (84.0-98.0) fL MCH 29.2 (28.2-33.3) pg MCHC 33.6 (31.7-36.0) g/dL RDW 14.6 H (11.2-14.1) % Plt Count 272 (150-350) K/uL Neut % (Auto) 55.5 (45.0-80.0) % Lymph % (Auto) 28.1 (10.0-50.0) % Stanton % (Auto) 11.2 (2.0-14.0) % Eos % (Auto) 4.7 (0.0-5.0) % Baso % (Auto) 0.5 (0.0-2.0) % Neut # (Auto) 5.24 (1.40-7.00) K/uL Lymph # (Auto) 2.65 (0.50-3.50) K/uL Stanton # (Auto) 1.06 H (0.00-1.00) K/uL Eos # (Auto) 0.44 (0.00-0.50) K/uL Baso # (Auto) 0.05 (0.00-0.20) K/uL Sodium 141 (136-145) mmol/L Potassium 3.4 L (3.5-5.1) mmol/L Chloride 108 H (98-107) mmol/L Carbon Dioxide 23.5 (21.0-32.0) mmol/L BUN 8 (7-18) mg/dL Creatinine 0.71 (0.51-1.17) mg/dL Est Cr Clr Drug Dosing 62.48 mL/min Estimated GFR (MDRD) > 60 mL/min Glucose 101 H (70-99) mg/dL Lactic Acid 0.6 (0.4-2.0) mmol/L Calcium 8.4 L (8.5-10.1) mg/dL Magnesium 2.0 (1.8-2.4) mg/dL Troponin I 0.030 (0.000-0.056) ng/mL C-Reactive Protein 5.9 H (<=0.9) mg/dL Med Orders - Current: Current Medications Acetaminophen (Acetaminophen 325 Mg Tab) 650 mg PO Q4H PRN PRN Reason: Pain/Fever Last Admin: 11/13/20 07:55 Dose: 650 mg Documented by: Amlodipine Besylate (Amlodipine 5 Mg Tab) 5 mg PO DAILY [facility] Last Admin: 11/13/20 07:51 Dose: 5 mg Documented by: Diphenhydramine HCl (Diphenhydramine 50 Mg/Ml Sdv) 25 mg IVPUSH Q6H PRN PRN Reason: Nausea/Vomiting Hydralazine HCl (Hydralazine 20 Mg/Ml Sdv) 20 mg IVPUSH Q4H PRN PRN Reason: Hypertension Last Admin: 11/11/20 04:53 Dose: 20 mg Documented by: Lisinopril (Lisinopril 20 Mg Tab) 20 mg PO DAILY [facility] Last Admin: 11/13/20 07:51 Dose: 20 mg Documented by: Miscellaneous Information (Remove Patch Nicotine Patch) 1 ea TRDERM DAILY [facility] Last Admin: 11/13/20 07:41 Dose: Not Given Documented by: Nicotine (Nicotine 21 Mg/24 Hr Patch) 21 mg TRDERM DAILY [facility] Last Admin: 11/13/20 07:51 Dose: 21 mg Documented by: Pantoprazole Sodium (Pantoprazole 40 Mg Vial) 40 mg IVPUSH Q12H [facility] Last Admin: 11/13/20 00:03 Dose: 40 mg Documented by: Phenyleph/Shark Oil/Min Oil/Petrol (Mineral Oil/Petrolatum/Phenylephrine/Shark Liver Oil Oint 57 Gm Tube) 1 gm RECTAL ASDIRECTED PRN PRN Reason: Other Promethazine HCl (Promethazine 25 Mg/Ml Sdv) 12.5 mg IM Q8H PRN PRN Reason: NAUSEA/VOMITING Last Admin: 11/10/20 20:01 Dose: 12.5 mg Documented by: Discontinued Medications Famotidine (Famotidine 20 Mg/2 Ml Sdv) 20 mg IVPUSH ONETIME ONE Stop: 11/08/20 15:00 Last Admin: 11/08/20 15:03 Dose: 20 mg Documented by: Hydralazine HCl (Hydralazine 20 Mg/Ml Sdv) 10 mg IVPUSH ONETIME ONE Stop: 11/10/20 11:26 Last Admin: 11/10/20 11:45 Dose: 10 mg Documented by: Sodium Chloride (Normal Saline) 1,000 mls @ 999 mls/hr IV .BOLUS ONE Stop: 11/08/20 15:54 Last Admin: 11/08/20 15:01 Dose: 999 mls/hr Documented by: Sodium Chloride (Normal Saline) 1,000 mls @ 150 mls/hr IV ASDIRECTED [facility] Stop: 11/09/20 23:09 Last Admin: 11/08/20 20:08 Dose: 150 mls/hr Documented by: Sodium Chloride (Normal Saline) 1,000 mls @ 500 mls/hr IV .BOLUS ONE Stop: 11/08/20 20:07 Last Admin: 11/08/20 19:49 Dose: 500 mls/hr Documented by: Sodium Chloride (Normal Saline) 1,000 mls @ 100 mls/hr IV ASDIRECTED [facility] Last Admin: 11/11/20 04:50 Dose: 100 mls/hr Documented by: Sodium Chloride (Normal Saline) 500 mls @ 999 mls/hr IV .BOLUS [facility] Last Admin: 11/10/20 11:51 Dose: 999 mls/hr Documented by: Potassium Chloride/Dextrose/Sod Cl (D5 1/2 Ns W/ 40 Meq/L Kcl) 1,000 mls @ 100 mls/hr IV ASDIRECTED [facility] Last Admin: 11/12/20 07:52 Dose: 100 mls/hr Documented by: Magnesium Sulfate 2 gm/ Premix 50 mls @ 25 mls/hr IV ONETIME ONE Stop: 11/11/20 11:42 Last Admin: 11/11/20 10:04 Dose: 25 mls/hr Documented by: Magnesium Sulfate 2 gm/ Premix 50 mls @ 25 mls/hr IV ONETIME ONE Stop: 11/12/20 10:53 Last Admin: 11/12/20 10:10 Dose: 25 mls/hr Documented by: Labetalol HCl (Labetalol 20 Mg/4 Ml Syringe) 20 mg IVPUSH ONETIME ONE; Protocol Stop: 11/10/20 13:04 Last Admin: 11/10/20 13:40 Dose: 20 mg Documented by: Labetalol HCl (Labetalol 20 Mg/4 Ml Syringe) 40 mg IVPUSH ONETIME ONE; Protocol Stop: 11/10/20 14:30 Last Admin: 11/10/20 15:02 Dose: 40 mg Documented by: Labetalol HCl (Labetalol 20 Mg/4 Ml Syringe) 40 mg IVPUSH ONETIME ONE; Protocol Stop: 11/11/20 08:52 Last Admin: 11/11/20 09:22 Dose: 40 mg Documented by: Lisinopril (Lisinopril 5 Mg Tab) 5 mg PO ONETIME ONE Stop: 11/08/20 16:04 Last Admin: 11/08/20 16:45 Dose: 5 mg Documented by: Lisinopril (Lisinopril 5 Mg Tab) 5 mg PO DAILY [facility] Last Admin: 11/09/20 08:04 Dose: 5 mg Documented by: Lisinopril (Lisinopril 5 Mg Tab) 5 mg PO ONETIME ONE Stop: 11/09/20 13:24 Last Admin: 11/09/20 14:16 Dose: 5 mg Documented by: Lisinopril (Lisinopril 10 Mg Tab) 10 mg PO DAILY [facility] Last Admin: 11/10/20 07:25 Dose: 10 mg Documented by: Lisinopril (Lisinopril 10 Mg Tab) 10 mg PO ONETIME ONE Stop: 11/10/20 11:10 Last Admin: 11/10/20 11:45 Dose: 10 mg Documented by: Metoprolol Succinate (Metoprolol Succinate 50 Mg Tab.Er) 50 mg PO NOW STA Stop: 11/13/20 09:27 Metoprolol Tartrate (Metoprolol Tartrate 25 Mg Tab) 25 mg PO ONETIME ONE Stop: 11/08/20 16:04 Last Admin: 11/08/20 16:46 Dose: 25 mg Documented by: Metoprolol Tartrate (Metoprolol Tartrate 25 Mg Tab) 25 mg PO DAILY [facility] Last Admin: 11/10/20 07:25 Dose: 25 mg Documented by: Metoprolol Tartrate (Metoprolol Tartrate 50 Mg Tab) 50 mg PO ONETIME ONE Stop: 11/09/20 17:23 Last Admin: 11/09/20 17:46 Dose: 50 mg Documented by: Metoprolol Tartrate (Metoprolol Tartrate 50 Mg Tab) 50 mg PO DAILY [facility] Metoprolol Tartrate (Metoprolol Tartrate 50 Mg Tab) 50 mg PO DAILY [facility] Last Admin: 11/12/20 07:51 Dose: 50 mg Documented by: Metoprolol Tartrate (Metoprolol Tartrate 25 Mg Tab) 25 mg PO ONETIME ONE Stop: 11/10/20 11:34 Last Admin: 11/10/20 11:45 Dose: 25 mg Documented by: Morphine Sulfate (Morphine 4 Mg/Ml Syringe) 4 mg IVPUSH ONETIME ONE Stop: 11/10/20 10:36 Last Admin: 11/10/20 10:51 Dose: 4 mg Documented by: Ondansetron HCl (Ondansetron 4 Mg/2 Ml Sdv) 4 mg IVPUSH ONETIME ONE Stop: 11/08/20 14:55 Last Admin: 11/08/20 15:04 Dose: 4 mg Documented by: Ondansetron HCl (Ondansetron 4 Mg/2 Ml Sdv) 4 mg IVPUSH Q6H PRN PRN Reason: Nausea/Vomiting Pantoprazole Sodium (Pantoprazole 40 Mg Vial) 40 mg IVPUSH ONETIME ONE Stop: 11/08/20 15:00 Last Admin: 11/08/20 15:04 Dose: 40 mg Documented by: Pantoprazole Sodium (Pantoprazole 40 Mg Vial) 40 mg IVPUSH ONETIME ONE Stop: 11/09/20 08:01 Last Admin: 11/09/20 08:05 Dose: 40 mg Documented by: Potassium Chloride (Potassium Chloride 10 Meq Tab.Er) 40 meq PO NOW STA Stop: 11/13/20 09:28 - Exam General: Reports: Alert, Oriented HEENT: Reports: Pupils Equal, Pupils Reactive, EOMI, Mucous Membr. Moist/[place] Neck: Reports: Supple Lungs: Reports: Clear to Auscultation, Normal Respiratory Effort Cardiovascular: Reports: Regular Rate, Regular Rhythm GI/Abdominal Exam: Normal Bowel Sounds, Soft, Tender (Very mild tenderness throughout the abdomen improved since yesterday. No distention guarding rigidi ty or rebound.) (Female) Exam: Deferred Rectal (Female) Exam: Deferred Back Exam: Reports: Normal Inspection, Full Range of Motion Extremities: Normal Inspection, Normal Range of Motion, No Pedal Edema, Normal Capillary Refill Skin: Reports: Warm, Dry, Intact Neurological: Reports: No New Focal Deficit Psy/Mental Status: Reports: Alert, Normal Affect, Normal Mood
[2020-11-13] MEDS: Metoprolol Tartrate 50 MG Tab PO SCH (09:43)
== END 2020-11-13 10:52 | disposition home or self-care (01) | DRG 378 ==
LOC: LL.ED 14:23 → LL.MS 15:50 → OBSVTOIN 11-10 11:05
PROVIDERS: ADMIT Emergency Medicine; ATTEND Emergency Medicine
DX: K62.5 Hemorrhage of anus and rectum (principal); N17.9 Acute kidney failure, unspecified; R11.2 Nausea with vomiting, unspecified; R10.9 Unspecified abdominal pain; A08.4 Viral intestinal infection, unspecified; E86.0 Dehydration; R91.1 Solitary pulmonary nodule; K86.9 Disease of pancreas, unspecified; E83.42 Hypomagnesemia; R19.7 Diarrhea, unspecified; E87.6 Hypokalemia; R77.8 Other specified abnormalities of plasma proteins; Z79.82 Long term (current) use of aspirin; Z79.899 Other long term (current) drug therapy; Z88.1 Allergy status to other antibiotic agents; Z88.8 Allergy status to other drugs, medicaments and biological substances; I10 Essential (primary) hypertension; F17.210 Nicotine dependence, cigarettes, uncomplicated; Z95.2 Presence of prosthetic heart valve
CPT/HCPCS: 36415; 74022; 74176; 80048; 80053; 81001; 83605; 83690; 83735; 84443; 84484; 85025; 86140; 87324; 87328; 87329; 93005; 96374; 96375; 99285-25; A9270-GY; C9113; J0360; J2270; J2405; J2550; J3475; J3480; J3490; J7030; J7040